=== PATIENT | female | born 1940 | race Caucasian/White ===

== ENCOUNTER 2019-08-11 10:25 | Emergency (ER) | payer MEDICARE ==
[~2019-08-11 10:25] MED LIST: AEC81 PO; DIVA-76 PO; LACT10SO PO; LEVO75TA10 PO; MULT-1250 PO; SERT50TA12 PO; TRAM50TA4 PO; TRAZ-185 PO
[2019-08-11 11:49] LABS: APPEARANCE,URINE Turbid (CLEAR); BILIRUBIN,URINE Negative (NEGATIVE); COLOR,URINE Dark Yellow (YELLOW); GLUCOSE, URINE (UA) >=1000 mg/dL (NEGATIVE); KETONES,URINE Negative (NEGATIVE); LEUKOCYTE ESTERASE ,URINE Large (NEGATIVE); NITRATE,URINE Negative (NEGATIVE); OCCULT BLOOD,URINE Large (NEGATIVE); PROTEIN,URINE POS 1+ mg/dL (NEGATIVE); UROBILINOGEN,URINE 0.2 mg/dL (0.2-1.0)
[2019-08-11 12:14] LABS: RBC,URINE 51-100 /HPF (0-1); WBC,URINE >100 /HPF (0-1)
[2019-08-11 12:15] LABS: BACTERIA,URINE Few /HPF (None Seen)
[2019-08-11] MEDS ORDERED: NITROFURANTOIN MONOHYD/M-CRYST 100 MG CAPSULE PO ONE (12:20)
--- NOTE | 2019-08-11 15:00 | NUR ---
CM NOTE cm spoke to patient's spouse regarding issues with home health. Spouse states home health was notified by their LOSS PREVENTION DETECTIVE on about perez not draining. States issue was reported again by LOSS PREVENTION DETECTIVE on Tuesday morning. Reports Nursing made visit on Tuesday evening and was recommended pt go to ER. CM asked offered short term snf/rehab as possible dc option vs changing home health agencies. Spouse declined SNF. States he wants to care for pt at home. CM explained that home health agencies cannot be switched until MD orders have been obtained from their PCP. CM offered to call claim administrator precision assembly inspector to [facility] to further discuss issue. Explained that agency can possibly have a different nurse assigned to pt or increase visits. Verbalized understanding. CM obtained BRIELLE to further discuss with [facility]. Spouse also gave CM phone number for [facility] [phone]. CM offered to contact PA with above information to further discuss options. No other questions or concerns verbalized. Nursing aware of above.
--- NOTE | 2019-08-11 15:31 | NUR ---
CM F/U NOTE CM spoke to church communications administrator Shahida Dallas regarding issue in delay with nursing visit. States she will be investigating time line and staff involved states she can assign a different nurse and will be contacting spouse to correct any issues. CM also attempted phone call to [facility] De Guzman to phone number provided. No answer, left message. CM then updated spouse with above. No other questions or concerns verbalized.
== END 2019-08-11 15:48 | disposition home or self-care (01) ==
LOC: EDH 10:25
DX: N39.0 Urinary tract infection, site not specified (principal); R33.9 Retention of urine, unspecified; I12.9 Hypertensive chronic kidney disease with stage 1 through stage 4 chronic kidney disease, or unspecified chronic kidney disease; E11.22 Type 2 diabetes mellitus with diabetic chronic kidney disease; N18.2 Chronic kidney disease, stage 2 (mild); I25.10 Atherosclerotic heart disease of native coronary artery without angina pectoris; K21.9 Gastro-esophageal reflux disease without esophagitis; M19.90 Unspecified osteoarthritis, unspecified site; F32.9 Major depressive disorder, single episode, unspecified; Z88.0 Allergy status to penicillin; Z88.2 Allergy status to sulfonamides; Z88.1 Allergy status to other antibiotic agents; Z88.8 Allergy status to other drugs, medicaments and biological substances
CPT/HCPCS: 51702; 81001; 87088

== ENCOUNTER 2019-08-25 20:21 | Inpatient (IN) | payer MEDICARE ==
[~2019-08-25] VITALS: Ht 165.1 cm; Wt 53.5 kg
[2019-08-25] MEDS ORDERED: MORPHINE SULFATE 2 MG/ML 1ML SYG ONE ×2 (20:52→21:41)
[2019-08-25 20:57] LABS: BASOPHILS % (AUTO) 0.7 % (0.0-5.0); EOSINOPHILS % (AUTO) 0.3 % (0.0-8.0); HEMATOCRIT 26.2 % (36-48); LYMPHOCYTES % (AUTO) 12.6 % (21.0-51.0); MEAN CORPUSCULAR HEMOGLOBIN 27.3 pg (27.0-33.0); MEAN CORPUSCULAR HGB CONC 33.2 g/dL (32.0-36.0); MEAN CORPUSCULAR VOLUME 82.1 fL (79-99); MONOCYTES % (AUTO) 6.6 % (3.0-13.0); NEUTROPHILS % (AUTO) 79.8 % (40.0-77.0); PLATELET COUNT (AUTO) 162 K/uL (130-400); RED BLOOD CELL COUNT(AUTO) 3.19 MIL/uL (4.00-5.50); RED CELL DISTRIBUTION WIDTH 14.9 % (11.0-15.5); WHITE BLOOD COUNT (AUTO) 11.1 K/uL (4.8-10.8)
[2019-08-25 21:12] LABS: ALBUMIN 2.8 g/dL (3.5-5.0); BILIRUBIN,DIRECT 0.2 mg/dL (0.0-0.3); BILIRUBIN,TOTAL 0.5 mg/dL (0.2-1.0); POTASSIUM 4.3 mmol/L (3.5-5.1); TOTAL PROTEIN, SERUM 6.7 g/dL (6.0-8.3)
[2019-08-25] MEDS ORDERED: CEFTRIAXONE SODIUM 1 GM ONE (21:35)
[2019-08-25] MEDS ORDERED: SODIUM CHLORIDE 0.9% 1000ML 2,000 ML IV ONE (21:35)
[2019-08-25] MEDS ORDERED: ONDANSETRON HCL 4 MG/2 ML VIAL ONE (21:42)
[2019-08-25 23:05] LABS: INR 0.98 (0.85-1.15); PARTIAL THROMBOPLASTIN TIME 28.8 SEC (26.3-35.5); PROTHROMBIN TIME 10.3 SEC (9.6-11.6)
[2019-08-25] MEDS ORDERED: ENOXAPARIN SODIUM 40 MG/0.4 ML SYRINGE SQ ONE (23:29)
[2019-08-25] MEDS ORDERED: VANCOMYCIN 1GM+NS 250ML 250 ML IV ONE (23:30)
[2019-08-25] MEDS ORDERED: FAMOTIDINE/PF 20 MG/2 ML VIAL IV ONE (23:30)
[2019-08-26 00:27] VITALS: BP 122/70
[2019-08-26] MEDS ORDERED: MORPHINE SULFATE 4 MG/1ML SYG ONE (01:05)
[2019-08-26] MEDS ORDERED: DEXTROSE 50%-WATER 50 ML DISP.SYRIN IV PRN (01:45)
[2019-08-26] MEDS ORDERED: HYDRALAZINE HCL 20 MG/ML VIAL IV PRN (01:45)
[2019-08-26] MEDS ORDERED: VANCOMYCIN PROTOCOL PER PHARMACY IV SCH (01:45)
[2019-08-26] MEDS ORDERED: ACETAMINOPHEN 325 MG TAB PO PRN (01:45)
[2019-08-26] MEDS ORDERED: ONDANSETRON HCL 4 MG/2 ML VIAL IVP PRN (01:45)
[2019-08-26] MEDS ORDERED: GLUCAGON 1MG KIT 1 MG ML IM PRN (01:45)
[2019-08-26 04:00] VITALS: BP 126/58
[2019-08-26 05:58] LABS: HEMATOCRIT 24.3 % (36-48); MEAN CORPUSCULAR HEMOGLOBIN 28.2 pg (27.0-33.0); MEAN CORPUSCULAR HGB CONC 34.2 g/dL (32.0-36.0); MEAN CORPUSCULAR VOLUME 82.3 fL (79-99); PLATELET COUNT (AUTO) 171 K/uL (130-400); RED BLOOD CELL COUNT(AUTO) 2.95 MIL/uL (4.00-5.50); RED CELL DISTRIBUTION WIDTH 14.9 % (11.0-15.5); WHITE BLOOD COUNT (AUTO) 9.4 K/uL (4.8-10.8)
[2019-08-26 06:05] LABS: CREATININE 0.7 mg/dL (0.5-1.5); POTASSIUM 3.9 mmol/L (3.5-5.1)
[2019-08-26] MEDS ORDERED: COMPOUND IV REFRIGERATED 1 EACH IVSOLN MISC PRN (06:30)
[2019-08-26] MEDS: INSULIN R PO SS1 SQ SCH ×4 (06:31→21:00)
[2019-08-26 08:00] VITALS: BP 111/57
[2019-08-26] MEDS: FAMOTIDINE/PF 20 MG/2 ML VIAL IV SCH (08:03)
[2019-08-26] MEDS: ENOXAPARIN SODIUM 40 MG/0.4 ML SYRINGE SQ SCH (08:04)
[2019-08-26] MEDS: VANCOMYCIN 750MG + NS 250 ML IV SCH ×4 (08:50→19:58)
[2019-08-26] MEDS ORDERED: SODIUM CHLORIDE 1,000 MG TAB PO SCH (11:45)
[2019-08-26 12:00] VITALS: BP 136/61
--- NOTE | 2019-08-26 12:00 | NUR ---
Dr Spaulding orthopedic surgeon continuous process machine operator was informed of consult
--- NOTE | 2019-08-26 12:15 | NUR ---
Dr Spaulding visited with pt, no family member present, he viewed the X ray and said that it is a complicated fracture and he doesn't do that type of surgeries. He said he will talked to Dr Plaza since he did surgery on the pt before. Alissa OAKEShome care consultant nurse informed Dr Spaulding that pt's do not want Dr Plaza in the case because he had suggested amputation for that leg in the past. He said he will still inform Dr Plaza.
[2019-08-26] MEDS: MORPHINE SULFATE 4 MG/1ML SYG IVP PRN ×2 (13:24→18:52)
[2019-08-26 16:00] VITALS: BP 114/57
[2019-08-26] MEDS: MORPHINE SULFATE 2 MG/ML 1ML SYG IVP PRN (17:11)
--- NOTE | 2019-08-26 18:14 | NUR ---
INITIAL: No family in the room. Pt w AMS. Call placed to pt's spouse Hector to discuss dcp. He mentions that prior to admission pt was living @ home w him. He mentions that pt is bedbound and dependent for care. She has a hx of knee removal to the lt and does not walk. He mentions that they have a marcelina lift, lift chair, wc and services from [facility]. he mentions that a bed/bath aide goes by 6days a week. Physical therapy also goes by and the PA makes home visits. Per Mr Demarco, he has all the assistance needed at home to continue to care for pt. DCP is for home/not considering SNf @ this time. Pt will need EMS transport home @ dc. to continue to follow and wait for Md recommendations. Addendum: 08/26/19 at 1818 by SKYLAR HUFFMAN Amended: Links added.
[2019-08-26] MEDS ORDERED: LACTULOSE 20 GM/30 ML UDCUP PO PRN (18:45)
[2019-08-26] MEDS: CEFTRIAXONE SODIUM 1 GM IVP SCH (19:57)
[2019-08-26] MEDS: SERTRALINE HCL 50 MG TABLET PO SCH (19:58)
[2019-08-26] MEDS: TRAZODONE HCL 50 MG TAB PO SCH (19:58)
[2019-08-26 20:00] VITALS: BP 115/57
[2019-08-27] VITALS (7 sets, daily range): BP systolic 102–147; BP diastolic 44–89
[2019-08-27] MEDS: MORPHINE SULFATE 2 MG/ML 1ML SYG IVP PRN ×2 (01:18→13:34)
[2019-08-27] MEDS: INSULIN R PO SS1 SQ SCH ×4 (06:02→21:00)
[2019-08-27 06:26] LABS: BASOPHILS % (AUTO) 0.4 % (0.0-5.0); EOSINOPHILS % (AUTO) 1.1 % (0.0-8.0); HEMATOCRIT 23.3 % (36-48); LYMPHOCYTES % (AUTO) 7.2 % (21.0-51.0); MEAN CORPUSCULAR HEMOGLOBIN 27.8 pg (27.0-33.0); MEAN CORPUSCULAR HGB CONC 33.4 g/dL (32.0-36.0); MEAN CORPUSCULAR VOLUME 83.3 fL (79-99); MONOCYTES % (AUTO) 6.2 % (3.0-13.0); NEUTROPHILS % (AUTO) 85.1 % (40.0-77.0); PLATELET COUNT (AUTO) 188 K/uL (130-400); RED CELL DISTRIBUTION WIDTH 15.3 % (11.0-15.5); WHITE BLOOD COUNT (AUTO) 8.7 K/uL (4.8-10.8)
[2019-08-27 06:27] LABS: CREATININE 0.8 mg/dL (0.5-1.5)
[2019-08-27] MEDS: FAMOTIDINE/PF 20 MG/2 ML VIAL IV SCH (08:45)
[2019-08-27] MEDS: VANCOMYCIN 750MG + NS 250 ML IV SCH ×4 (08:46→21:00)
[2019-08-27] MEDS: ENOXAPARIN SODIUM 40 MG/0.4 ML SYRINGE SQ SCH (08:51)
[2019-08-27] MEDS: SERTRALINE HCL 50 MG TABLET PO SCH ×2 (12:22→21:12)
[2019-08-27] MEDS: DIVALPROEX SODIUM 250 MG TABLET.DR PO SCH (12:22)
[2019-08-27] MEDS: ASPIRIN 81 MG EC TAB PO SCH (12:23)
[2019-08-27] MEDS: LEVOTHYROXINE 75 MCG TABLET PO SCH (12:24)
--- NOTE | 2019-08-27 12:46 | NUR ---
pt had a large fluid filled blister to right leg below knee; the blister ruptured at some point this am; i have placed a vaseline gauze then non adherant gauze over that w/ kerlix wrap, no tape on skin; pt tolerated poorly the dressing change screaming continously when her leg was touched; she immediatly calmed down when i was done; i had another nurse assist me to gently hold the leg while i applied the dressing.
[2019-08-27] MEDS ORDERED: KETOROLAC TROMETHAMINE 30MG/ML IV SCH (15:00)
--- NOTE | 2019-08-27 15:48 | NUR ---
[facility] CONSULT PATIENT ASSESSED REQUESTED: PATIENT PRESENTS WITH RUPTURED BLISTER TO RIGHT KNEE AND PERINEAL EXCORIATION; CONTINUE WITH WOUND CARE ORDERS ALREADY IN CHART; NO [facility] RECOMMENDATIONS REQUIRED AT THIS TIME. Addendum: 08/27/19 at 1553 by PIA DE LA PAZ LVN LVN W Amended: Links added.
[2019-08-27] MEDS ORDERED: PALI6TAB PO (18:46)
[2019-08-27] MEDS: MORPHINE SULFATE 4 MG/1ML SYG IVP PRN (18:58)
--- NOTE | 2019-08-27 19:09 | NUR ---
knee immobilizer applied to right leg after medicating the patient with morphine; pt kathia. well. 2 people used to apply, 1 to hold the leg and [address] knee immobilizer; pt's here and he is stating he has the house ready when the md decides she can go home.
--- NOTE | 2019-08-27 21:00 | NUR ---
PER OPINAS DO NOT GIVE VANCO DOSE [id number]
[2019-08-27] MEDS: NYSTATIN 15 GM POWDER TP SCH (21:12)
[2019-08-27] MEDS: CEFTRIAXONE SODIUM 1 GM IVP SCH (21:12)
[2019-08-27] MEDS: TRAZODONE HCL 50 MG TAB PO SCH (21:12)
[2019-08-27] MEDS ORDERED: HALOPERIDOL LACTATE 5 MG/ML VIAL ONE (23:04)
[2019-08-27] MEDS: HALOPERIDOL LACTATE 5 MG/ML VIAL IV SCH (23:47)
[2019-08-28] VITALS (7 sets, daily range): BP systolic 112–147; BP diastolic 50–89
[2019-08-28] MEDS: MORPHINE SULFATE 2 MG/ML 1ML SYG IVP PRN (00:31)
[2019-08-28 06:04] LABS: MEAN CORPUSCULAR HEMOGLOBIN 27.6 pg (27.0-33.0); MEAN CORPUSCULAR HGB CONC 33.4 g/dL (32.0-36.0); MEAN CORPUSCULAR VOLUME 82.7 fL (79-99); PLATELET COUNT (AUTO) 192 K/uL (130-400); RED BLOOD CELL COUNT(AUTO) 2.47 MIL/uL (4.00-5.50); RED CELL DISTRIBUTION WIDTH 15.7 % (11.0-15.5); WHITE BLOOD COUNT (AUTO) 6.7 K/uL (4.8-10.8)
[2019-08-28 06:08] LABS: HEMATOCRIT 20.5 % (36-48)
[2019-08-28 06:20] LABS: POTASSIUM 3.6 mmol/L (3.5-5.1)
--- NOTE | 2019-08-28 06:30 | NUR ---
BENCHMARK PAGED FOR HEMOGLOBIN & HEMATOCRIT
[2019-08-28] MEDS: INSULIN R PO SS1 SQ SCH ×4 (06:44→21:00)
[2019-08-28] MEDS: LEVOTHYROXINE 75 MCG TABLET PO SCH (06:44)
--- NOTE | 2019-08-28 07:55 | NUR ---
Telephone Consent Mr. Hector Pal called via telephone this morning for consent to give blood to her Ana Pal. Pt only alert to self and unable to give consent for blood transfusion. Consent acknowledged and by a second RN.
[2019-08-28] MEDS: SERTRALINE HCL 50 MG TABLET PO SCH ×2 (10:03→21:11)
[2019-08-28] MEDS: ASPIRIN 81 MG EC TAB PO SCH (10:03)
[2019-08-28] MEDS: FAMOTIDINE/PF 20 MG/2 ML VIAL IV SCH (10:03)
[2019-08-28] MEDS: DIVALPROEX SODIUM 250 MG TABLET.DR PO SCH (10:03)
[2019-08-28] MEDS: NYSTATIN 15 GM POWDER TP SCH ×2 (10:04→21:23)
[2019-08-28] MEDS: ENOXAPARIN SODIUM 40 MG/0.4 ML SYRINGE SQ SCH (10:04)
--- NOTE | 2019-08-28 12:17 | NUR ---
PT UPDATE Pt condition stable at this time, pending type and cross results to transfuse 1 unit of PRBC, care endorsed to RN.
--- NOTE | 2019-08-28 15:24 | NUR ---
RD NOTIFICATION Pt admitted for RLE Swelling/cellulitis. Upon visit, Pt difficult to talk, appearance of enlarged tongue that may cause swallowing difficulty; Recommend ELEVATOR REPAIRER HELPER Consult. Pt had only eaten 25% or less of meal tray. Difficult to understand responses to questions, besides yes/no questions. Pt dislikes Glucerna. Recommend 60mL ProMod QD, as tolerated. Pt LBM 08/24/19. Pt Labs: H&H 6.8/09/04, Na 134, Cl 98, GFR 57, Glu 194, Alb 2.8. RD to continue to monitor. Please notify RD as additional nutrition concerns arise. Thank you. Addendum: 08/28/19 at [address] Amended: Links added.
--- NOTE | 2019-08-28 18:25 | NUR ---
ATTEMPTED TO CALL SUZANNE LONGORIA ON HER PHONE TO NOTIFY HER THAT THE BLOOD TRANSFUSION WILL BE DELAY BECAUSE THE BLOOD WILL BE COMING FROM [place]. NO ANSWER WILL CALL BACK AGAIN
[2019-08-28] MEDS: MORPHINE SULFATE 4 MG/1ML SYG IVP PRN (18:52)
[2019-08-28] MEDS: CEFTRIAXONE SODIUM 1 GM IVP SCH (21:11)
[2019-08-28] MEDS: TRAZODONE HCL 50 MG TAB PO SCH (21:11)
[2019-08-28] MEDS: VANCOMYCIN 750MG + NS 250 ML IV SCH ×2 (21:12)
[2019-08-28] MEDS: HALOPERIDOL LACTATE 5 MG/ML VIAL IV SCH (21:24)
--- NOTE | 2019-08-29 00:40 | NUR ---
PT STARTED ON BLOOD TRANSFUSION ORDERED PT 'S VITAL SIGNS STABLE NO SIGNS OF ADVERSE REACTIONS NOTED WILL CONTINUE TO MONITOR
[2019-08-29 03:33] VITALS: BP 138/74
[2019-08-29 05:34] LABS: HEMATOCRIT 26.3 % (36-48); MEAN CORPUSCULAR HEMOGLOBIN 28.3 pg (27.0-33.0); MEAN CORPUSCULAR HGB CONC 34.1 g/dL (32.0-36.0); PLATELET COUNT (AUTO) 196 K/uL (130-400); RED BLOOD CELL COUNT(AUTO) 3.17 MIL/uL (4.00-5.50); RED CELL DISTRIBUTION WIDTH 15.5 % (11.0-15.5); WHITE BLOOD COUNT (AUTO) 7.2 K/uL (4.8-10.8)
[2019-08-29 05:44] LABS: CREATININE 0.8 mg/dL (0.5-1.5); POTASSIUM 3.7 mmol/L (3.5-5.1)
--- NOTE | 2019-08-29 06:10 | NUR ---
SHAPER SETTER - BUCK AWARE THAT PER LAB A PAPER HAS TO BE SINGED STATED , THAT HE WAS AWARE OF PT'S ANTIBODIES FOR BLOOD CROSS TYPE EVEN THO HE IS AWARE , HE STATED TO HAVE THE MORNING SHAPER SETTER CAN SIGN THE PAPER HE DID NOT WANT ME TO SIGN TELEPHONE
[2019-08-29] MEDS: LEVOTHYROXINE 75 MCG TABLET PO SCH (06:58)
[2019-08-29] MEDS: INSULIN R PO SS1 SQ SCH ×3 (07:08→18:00)
[2019-08-29 08:00] VITALS: BP 157/106
[2019-08-29] MEDS: ENOXAPARIN SODIUM 40 MG/0.4 ML SYRINGE SQ SCH (08:59)
[2019-08-29] MEDS: DIVALPROEX SODIUM 250 MG TABLET.DR PO SCH (09:00)
[2019-08-29] MEDS: SERTRALINE HCL 50 MG TABLET PO SCH (09:00)
[2019-08-29] MEDS: ASPIRIN 81 MG EC TAB PO SCH (09:00)
[2019-08-29] MEDS: FAMOTIDINE/PF 20 MG/2 ML VIAL IV SCH (09:00)
[2019-08-29] MEDS: VANCOMYCIN 750MG + NS 250 ML IV SCH ×2 (09:15)
[2019-08-29] MEDS: NYSTATIN 15 GM POWDER TP SCH (09:16)
[2019-08-29 11:38] VITALS: BP 141/73
[2019-08-29 16:00] VITALS: BP 156/84
--- NOTE | 2019-08-29 17:30 | NUR ---
i have called and spoken to Hector Pal, of pt Ana on the phone and given him discharge instructions; including care of tibia fx, knee immobilizer, wound care for blister, follow up appointments necessary, new scripts for oral abx; pt's stated understanding of all d/c instructions; pt is being transfered via ems; i will remove iv access and tele box now in preperation for ems olive picker
== END 2019-08-29 18:45 | disposition home health service (06) | DRG 871 ==
LOC: EDH 20:21 → EDHIP 22:29 → OBSVTOIN 22:29 → 3BH 23:39
PROVIDERS: ADMIT Internal Medicine Critical Care Medicine; ATTEND Internal Medicine Critical Care Medicine
PROC: 2W3QX3Z Immobilization of Right Lower Leg using Brace (ICD-10-PCS; principal; 2019-08-28)
PROC: 30233N1 Transfusion of Nonautologous Red Blood Cells into Peripheral Vein, Percutaneous Approach (ICD-10-PCS; 2019-08-29)
DX: A41.9 Sepsis, unspecified organism (principal); G93.41 Metabolic encephalopathy; L03.115 Cellulitis of right lower limb; E87.1 Hypo-osmolality and hyponatremia; Z68.1 Body mass index [BMI] 19.9 or less, adult; M97.11XA Periprosthetic fracture around internal prosthetic right knee joint, initial encounter; E44.1 Mild protein-calorie malnutrition; S82.831A Other fracture of upper and lower end of right fibula, initial encounter for closed fracture; Z96.653 Presence of artificial knee joint, bilateral; F32.9 Major depressive disorder, single episode, unspecified; I10 Essential (primary) hypertension; D64.9 Anemia, unspecified; E03.9 Hypothyroidism, unspecified; F20.9 Schizophrenia, unspecified; G89.29 Other chronic pain; E66.01 Morbid (severe) obesity due to excess calories; E11.9 Type 2 diabetes mellitus without complications; R29.6 Repeated falls; F03.90 Unspecified dementia, unspecified severity, without behavioral disturbance, psychotic disturbance, mood disturbance, and anxiety; M19.90 Unspecified osteoarthritis, unspecified site; Z86.14 Personal history of Methicillin resistant Staphylococcus aureus infection; Z74.01 Bed confinement status; Z87.440 Personal history of urinary (tract) infections; Y92.89 Other specified places as the place of occurrence of the external cause; Z91.81 History of falling; Z83.3 Family history of diabetes mellitus; Z90.49 Acquired absence of other specified parts of digestive tract; Z88.1 Allergy status to other antibiotic agents; Z88.0 Allergy status to penicillin; Z88.2 Allergy status to sulfonamides
CPT/HCPCS: 36415; 36430; 71045; 73590; 73700; 80048; 80076; 80202; 82550; 82948; 83605; 84145; 85025; 85027; 85610; 85730; 86850; 86870; 86900; 86901; 86922; 87040; 93005; 93971; G0378; J0696; J1630; J1650; J1815; J1885; J2270; J2405; J3370; J3490; J7030; P9016

== ENCOUNTER 2021-05-17 16:13 | Inpatient (IN) | payer MEDICARE ==
[~2021-05-17] VITALS: Ht 162.6 cm; Wt 85.3 kg
[~2021-05-17 16:13] MED LIST changes: -LACT10SO PO; +LACT10SO5 PO; -MULT-1250 PO; +PALI6TAB PO; +SERT-439 PO; -SERT50TA12 PO; -TRAM50TA4 PO
[2021-05-17 16:33] VITALS: BP 160/72
[2021-05-17] MEDS ORDERED: 0.9%NACL 1000ML 1,000 ML IV ONE (16:45)
[2021-05-17 17:21] LABS: BASOPHILS % (AUTO) 0.2 % (0.0-5.0); EOSINOPHILS % (AUTO) 3.2 % (0.0-8.0); LYMPHOCYTES % (AUTO) 23.1 % (21.0-51.0); MEAN CORPUSCULAR HEMOGLOBIN 25.3 pg (27.0-33.0); MEAN CORPUSCULAR HGB CONC 30.8 g/dL (32.0-36.0); MEAN CORPUSCULAR VOLUME 82.3 fL (79-99); MONOCYTES % (AUTO) 5.9 % (3.0-13.0); NEUTROPHILS % (AUTO) 67.4 % (40.0-77.0); PLATELET COUNT (AUTO) 179 K/uL (130-400); RED BLOOD CELL COUNT(AUTO) 4.62 MIL/uL (4.00-5.50); RED CELL DISTRIBUTION WIDTH 14.2 % (11.0-15.5); WHITE BLOOD COUNT (AUTO) 4.9 K/uL (4.8-10.8)
[2021-05-17 17:27] VITALS: BP 148/81
[2021-05-17 17:27] LABS: APPEARANCE,URINE Turbid (CLEAR); BILIRUBIN,URINE Negative (NEGATIVE); COLOR,URINE Yellow (YELLOW); GLUCOSE, URINE (UA) 500 mg/dL (NEGATIVE); KETONES,URINE Negative (NEGATIVE); LEUKOCYTE ESTERASE ,URINE Large (NEGATIVE); NITRATE,URINE Negative (NEGATIVE); OCCULT BLOOD,URINE Moderate (NEGATIVE); PROTEIN,URINE POS 2+ mg/dL (NEGATIVE); UROBILINOGEN,URINE 0.2 mg/dL (0.2-1.0)
[2021-05-17 17:38] LABS: BILIRUBIN,TOTAL 0.3 mg/dL (0.2-1.0); POTASSIUM 4.2 mmol/L (3.5-5.1); TOTAL PROTEIN, SERUM 7.8 g/dL (6.0-8.3)
[2021-05-17 17:48] LABS: BACTERIA,URINE Many /HPF (None Seen); MUCUS,URINE Few LPF (None Seen); SQUAMOUS EPITHELIAL CELL,UR 0-2 /HPF (0-2); YEAST,URINE BUDDING Moderate /HPF (None Seen)
[2021-05-17] MEDS ORDERED: IOHEXOL-350 75 ML VIAL IV ONE (17:51)
[2021-05-17 17:59] LABS: TRIPLE PHOSPHATE CRYSTAL,UR Few /LPF (None Seen)
[2021-05-17 18:49] VITALS: BP 162/72
[2021-05-17 20:02] VITALS: BP 153/85
[2021-05-17] MEDS ORDERED: NON-FORMULARY MEDICATION 1 EACH (Lactulose 10 GM) PO PRN (20:30)
[2021-05-17] MEDS ORDERED: INSULIN HUMULIN R 100 UNIT/ML 3ML IV ONE (20:30)
[2021-05-17] MEDS ORDERED: MAG/ALUM/SIMETH 30 ML UDCUP PO PRN (20:45)
[2021-05-17] MEDS ORDERED: APAP-CODEINE 300/30MG TAB PO PRN (20:45)
[2021-05-17] MEDS ORDERED: GUAIFENESIN-DM 200/20 MG 10 ML PO PRN (20:45)
[2021-05-17] MEDS ORDERED: LACTULOSE 20 GM/30 ML UDCUP PO PRN (20:45)
[2021-05-17] MEDS ORDERED: ONDANSETRON 4MG INJ IV PRN (20:45)
[2021-05-17] MEDS ORDERED: ACETAMINOPHEN 325 MG TAB PO PRN ×2 (20:45)
[2021-05-17] MEDS ORDERED: HYDRALAZINE 20MG/ML VIAL IV PRN (20:45)
[2021-05-17] MEDS ORDERED: NITROGLYCERIN 0.4 MG SL TAB SL PRN (20:45)
[2021-05-17] MEDS: METRONIDAZOLE 500MG/100ML BAG 100 ML IV SCH (20:59)
[2021-05-17] MEDS: CEFTRIAXONE 1G VIAL IVP SCH ×2 (20:59→21:19)
[2021-05-17] MEDS: 0.9%NACL 1000ML 1,000 ML IV SCH (20:59)
[2021-05-17] MEDS: TRAZODONE HCL 50 MG TAB PO SCH (21:00)
[2021-05-17] MEDS: INSULIN HUMULIN R 100 UNIT/ML 3ML SQ SCH (21:00)
[2021-05-17] MEDS: SERTRALINE HCL 50 MG TABLET PO SCH (21:19)
[2021-05-17] MEDS ORDERED: DiphenhydrAMINE HCL 50 MG/ML VIAL ONE (23:38)
[2021-05-18] VITALS (9 sets, daily range): BP systolic 121–163; BP diastolic 56–105
[2021-05-18] MEDS: METRONIDAZOLE 500MG/100ML BAG 100 ML IV SCH ×3 (05:44→21:27)
[2021-05-18 05:56] LABS: BASOPHILS % (AUTO) 0.4 % (0.0-5.0); HEMATOCRIT 34.7 % (36-48); LYMPHOCYTES % (AUTO) 32.4 % (21.0-51.0); MEAN CORPUSCULAR HEMOGLOBIN 25.4 pg (27.0-33.0); MEAN CORPUSCULAR HGB CONC 31.1 g/dL (32.0-36.0); MEAN CORPUSCULAR VOLUME 81.6 fL (79-99); NEUTROPHILS % (AUTO) 55.8 % (40.0-77.0); PLATELET COUNT (AUTO) 169 K/uL (130-400); RED BLOOD CELL COUNT(AUTO) 4.25 MIL/uL (4.00-5.50); RED CELL DISTRIBUTION WIDTH 14.3 % (11.0-15.5); WHITE BLOOD COUNT (AUTO) 5.6 K/uL (4.8-10.8)
[2021-05-18 06:07] LABS: CREATININE 0.8 mg/dL (0.5-1.5); POTASSIUM 4.3 mmol/L (3.5-5.1)
[2021-05-18] MEDS: INSULIN HUMULIN R 100 UNIT/ML 3ML SQ SCH ×4 (07:30→21:00)
[2021-05-18] MEDS: SERTRALINE HCL 50 MG TABLET PO SCH ×2 (08:45→21:00)
[2021-05-18] MEDS: DIVALPROEX SODIUM 250 MG TABLET.DR PO SCH (08:45)
[2021-05-18] MEDS: ASPIRIN 81 MG EC TAB PO SCH (08:45)
[2021-05-18] MEDS: LEVOTHYROXINE 75 MCG TABLET PO SCH (08:45)
[2021-05-18] MEDS: ENOXAPARIN SODIUM 30 MG/0.3 ML SQ SCH (08:47)
[2021-05-18] MEDS: PALIPERIDONE 6 MG PO SCH (09:00)
[2021-05-18] MEDS ORDERED: CLONIDINE HCL 0.1 MG TABLET PO PRN (09:30)
[2021-05-18] MEDS: 0.9%NACL 1000ML 1,000 ML IV SCH (16:45)
[2021-05-18] MEDS ORDERED: TRAMADOL HCL 50 MG TABLET ONE (17:40)
[2021-05-18] MEDS ORDERED: TRAMADOL HCL 50 MG TABLET PO PRN (18:00)
[2021-05-18] MEDS ORDERED: HYDROMORPHONE 1 MG INJ ONE (18:08)
[2021-05-18] MEDS: TRAZODONE HCL 50 MG TAB PO SCH (21:00)
[2021-05-18] MEDS ORDERED: LORAZEPAM 2 MG/ML 1 ML VIAL ONE (22:07)
[2021-05-18] MEDS ORDERED: HALOPERIDOL LACTATE 5 MG/ML VIAL ONE (22:12)
[2021-05-18] MEDS ORDERED: MAGNESIUM CITRATE 296 ML SOLUTION PO ONE (22:30)
[2021-05-18] MEDS ORDERED: MAGNESIUM CITRATE 296 ML SOLUTION ONE (23:52)
[2021-05-19 06:35] LABS: CREATININE 0.8 mg/dL (0.5-1.5); POTASSIUM 3.7 mmol/L (3.5-5.1); THYROID STIMULATING HORMONE 3.63 uIU/mL (0.36-3.74)
[2021-05-19 06:43] LABS: HEMATOCRIT 36.7 % (36-48); MEAN CORPUSCULAR HEMOGLOBIN 26.2 pg (27.0-33.0); MEAN CORPUSCULAR HGB CONC 31.6 g/dL (32.0-36.0); RED BLOOD CELL COUNT(AUTO) 4.42 MIL/uL (4.00-5.50); RED CELL DISTRIBUTION WIDTH 14.5 % (11.0-15.5); WHITE BLOOD COUNT (AUTO) 5.9 K/uL (4.8-10.8)
[2021-05-19 07:30] VITALS: BP 195/90
[2021-05-19] MEDS: INSULIN HUMULIN R 100 UNIT/ML 3ML SQ SCH ×4 (07:30→20:38)
[2021-05-19] MEDS: PALIPERIDONE 6 MG PO SCH (09:00)
[2021-05-19] MEDS: SERTRALINE HCL 50 MG TABLET PO SCH ×2 (10:26→20:36)
[2021-05-19] MEDS: DIVALPROEX SODIUM 250 MG TABLET.DR PO SCH (10:26)
[2021-05-19] MEDS: LEVOTHYROXINE 75 MCG TABLET PO SCH (10:26)
[2021-05-19] MEDS: ASPIRIN 81 MG EC TAB PO SCH (10:26)
[2021-05-19] MEDS: ENOXAPARIN SODIUM 30 MG/0.3 ML SQ SCH (10:27)
[2021-05-19] MEDS: HYDRALAZINE 20MG/ML VIAL IV PRN ×2 (10:58→20:37)
[2021-05-19 11:00] VITALS: BP 203/80
[2021-05-19] MEDS: 0.9%NACL 1000ML 1,000 ML IV SCH (11:29)
[2021-05-19] MEDS: METRONIDAZOLE 500MG/100ML BAG 100 ML IV SCH ×2 (11:46→20:36)
[2021-05-19 16:00] VITALS: BP 193/88
[2021-05-19 19:45] VITALS: BP 167/94
[2021-05-19] MEDS: CEFTRIAXONE 1G VIAL IVP SCH (20:36)
[2021-05-19] MEDS: TRAZODONE HCL 50 MG TAB PO SCH (20:36)
[2021-05-19] MEDS: AZTREONAM 1 GM VIAL IVP SCH (22:00)
[2021-05-19 23:59] VITALS: BP 160/73
[2021-05-20] VITALS (7 sets, daily range): BP systolic 143–208; BP diastolic 56–94
[2021-05-20] MEDS: METRONIDAZOLE 500MG/100ML BAG 100 ML IV SCH ×3 (04:25→19:49)
[2021-05-20 05:46] LABS: MEAN CORPUSCULAR HGB CONC 31.3 g/dL (32.0-36.0); RED BLOOD CELL COUNT(AUTO) 4.58 MIL/uL (4.00-5.50); RED CELL DISTRIBUTION WIDTH 14.8 % (11.0-15.5); WHITE BLOOD COUNT (AUTO) 5.9 K/uL (4.8-10.8)
[2021-05-20] MEDS: INSULIN HUMULIN R 100 UNIT/ML 3ML SQ SCH ×4 (05:49→19:50)
[2021-05-20] MEDS: AZTREONAM 1 GM VIAL IVP SCH ×3 (05:49→19:49)
[2021-05-20] MEDS: LEVOTHYROXINE 75 MCG TABLET PO SCH (05:49)
[2021-05-20 06:09] LABS: CREATININE 0.8 mg/dL (0.5-1.5); POTASSIUM 3.4 mmol/L (3.5-5.1)
[2021-05-20] MEDS: PALIPERIDONE 6 MG PO SCH (09:00)
[2021-05-20] MEDS: SERTRALINE HCL 50 MG TABLET PO SCH ×2 (09:12→19:49)
[2021-05-20] MEDS: ASPIRIN 81 MG EC TAB PO SCH (09:13)
[2021-05-20] MEDS: DIVALPROEX SODIUM 250 MG TABLET.DR PO SCH (09:13)
[2021-05-20] MEDS: 0.9%NACL 1000ML 1,000 ML IV SCH (09:15)
[2021-05-20] MEDS: ENOXAPARIN SODIUM 30 MG/0.3 ML SQ SCH (09:15)
[2021-05-20] MEDS: TRAZODONE HCL 50 MG TAB PO SCH (19:49)
[2021-05-20] MEDS: HYDRALAZINE 20MG/ML VIAL IV PRN (20:38)
[2021-05-21 03:42] VITALS: BP 149/74
[2021-05-21] MEDS: METRONIDAZOLE 500MG/100ML BAG 100 ML IV SCH ×2 (04:30→13:09)
[2021-05-21] MEDS: 0.9%NACL 1000ML 1,000 ML IV SCH (04:30)
[2021-05-21] MEDS: AZTREONAM 1 GM VIAL IVP SCH ×2 (04:30→13:09)
[2021-05-21] MEDS: LEVOTHYROXINE 75 MCG TABLET PO SCH (06:11)
[2021-05-21] MEDS: INSULIN HUMULIN R 100 UNIT/ML 3ML SQ SCH ×2 (06:12→11:30)
[2021-05-21 07:30] VITALS: BP 183/89
[2021-05-21] MEDS: PALIPERIDONE 6 MG PO SCH (09:00)
[2021-05-21] MEDS: DIVALPROEX SODIUM 250 MG TABLET.DR PO SCH (09:19)
[2021-05-21] MEDS: HYDRALAZINE 20MG/ML VIAL IV PRN (09:19)
[2021-05-21] MEDS: ASPIRIN 81 MG EC TAB PO SCH (09:19)
[2021-05-21] MEDS: SERTRALINE HCL 50 MG TABLET PO SCH (09:19)
[2021-05-21] MEDS: ENOXAPARIN SODIUM 30 MG/0.3 ML SQ SCH (09:20)
[2021-05-21 11:00] VITALS: BP 138/74
[2021-05-21] MEDS ORDERED: LEVO500T89 PO (18:16)
== END 2021-05-21 19:39 | disposition hospice, home (50) | DRG 690 ==
LOC: EDH 16:13 → EDHIP 20:31 → OBSVTOIN 20:31 → 3CH 05-18 23:20
PROVIDERS: ADMIT Internal Medicine; ATTEND Internal Medicine
DX: N39.0 Urinary tract infection, site not specified (principal); J90 Pleural effusion, not elsewhere classified; K52.9 Noninfective gastroenteritis and colitis, unspecified; K59.00 Constipation, unspecified; E11.65 Type 2 diabetes mellitus with hyperglycemia; E86.0 Dehydration; E66.9 Obesity, unspecified; Z68.32 Body mass index [BMI] 32.0-32.9, adult; F03.90 Unspecified dementia, unspecified severity, without behavioral disturbance, psychotic disturbance, mood disturbance, and anxiety; F20.9 Schizophrenia, unspecified; G89.29 Other chronic pain; I10 Essential (primary) hypertension; I48.91 Unspecified atrial fibrillation; J44.9 Chronic obstructive pulmonary disease, unspecified; Z79.82 Long term (current) use of aspirin; Z80.1 Family history of malignant neoplasm of trachea, bronchus and lung; Z82.0 Family history of epilepsy and other diseases of the nervous system; Z82.3 Family history of stroke; Z82.49 Family history of ischemic heart disease and other diseases of the circulatory system; Z82.5 Family history of asthma and other chronic lower respiratory diseases; Z83.3 Family history of diabetes mellitus; Z79.899 Other long term (current) drug therapy; Z88.1 Allergy status to other antibiotic agents; Z88.0 Allergy status to penicillin; Z88.2 Allergy status to sulfonamides; Z88.8 Allergy status to other drugs, medicaments and biological substances
CPT/HCPCS: 36415; 74018; 74177; 80048; 80053; 81001; 82150; 82948; 83690; 84443; 84484; 85025; 85027; 87040; 87077; 87088; 87186; 93005; G0378; J0360; J0696; J1170; J1200; J1630; J1650; J1815; J2060; J3490; Q9967

== ENCOUNTER 2021-08-25 13:36 | Inpatient (IN) | payer MEDICARE ==
[~2021-08-25] VITALS: Ht 167.6 cm; Wt 74.1 kg
[~2021-08-25 13:36] MED LIST changes: +LEVO500T90 PO
[2021-08-25 14:40] LABS: BASOPHILS % (AUTO) 0.2 % (0.0-5.0); EOSINOPHILS % (AUTO) 3.3 % (0.0-8.0); LYMPHOCYTES % (AUTO) 13.5 % (21.0-51.0); MEAN CORPUSCULAR HEMOGLOBIN 25.5 pg (27.0-33.0); MEAN CORPUSCULAR HGB CONC 31.7 g/dL (32.0-36.0); MEAN CORPUSCULAR VOLUME 80.5 fL (79-99); MONOCYTES % (AUTO) 6.3 % (3.0-13.0); NEUTROPHILS % (AUTO) 76.3 % (40.0-77.0); PLATELET COUNT (AUTO) 191 K/uL (130-400); RED BLOOD CELL COUNT(AUTO) 4.47 MIL/uL (4.00-5.50); RED CELL DISTRIBUTION WIDTH 15.1 % (11.0-15.5); WHITE BLOOD COUNT (AUTO) 8.4 K/uL (4.8-10.8)
[2021-08-25 14:49] LABS: CREATININE 1.1 mg/dL (0.5-1.5)
[2021-08-25 14:54] LABS: ALBUMIN 2.9 g/dL (3.5-5.0); BILIRUBIN,TOTAL 0.3 mg/dL (0.2-1.0); TOTAL PROTEIN, SERUM 7.6 g/dL (6.0-8.3)
[2021-08-25 15:11] LABS: B-TYPE NATRIURETIC PEPTIDE 121 pg/mL (0-100)
[2021-08-25] MEDS ORDERED: DIAZ5TAB4 PO (16:49)
[2021-08-25] MEDS ORDERED: TRAM50TA4 PO (16:49)
[2021-08-25] MEDS ORDERED: LEVO88TA7 PO (16:49)
[2021-08-25] MEDS ORDERED: MORPHINE 4 MG SYG ONE (16:52)
[2021-08-25] MEDS ORDERED: ONDANSETRON 4MG INJ ONE (16:52)
[2021-08-25] MEDS ORDERED: LACTULOSE 20 GM/30 ML UDCUP PO PRN (19:30)
[2021-08-25] MEDS ORDERED: ONDANSETRON 4MG INJ IVP PRN (19:30)
[2021-08-25] MEDS ORDERED: CLONIDINE HCL 0.1 MG TABLET PO PRN (20:00)
[2021-08-25] MEDS ORDERED: ACETAMINOPHEN 325 MG TAB PO PRN (20:00)
[2021-08-25] MEDS: TRAZODONE HCL 50 MG TAB PO SCH (21:00)
[2021-08-25] MEDS: LACTATED RINGERS 1000ML 1,000 ML IV SCH (21:55)
[2021-08-25] MEDS: CEFTRIAXONE 1G VIAL IVP SCH (21:55)
[2021-08-25] MEDS: SERTRALINE HCL 50 MG TABLET PO SCH (22:44)
[2021-08-25 23:25] VITALS: BP 103/49
[2021-08-26 04:20] VITALS: BP 149/89
[2021-08-26] MEDS: MORPHINE 2 MG SYG IV PRN ×3 (04:22→19:58)
[2021-08-26 05:32] LABS: HEMATOCRIT 34.1 % (36-48); MEAN CORPUSCULAR HEMOGLOBIN 25.3 pg (27.0-33.0); MEAN CORPUSCULAR HGB CONC 31.1 g/dL (32.0-36.0); MEAN CORPUSCULAR VOLUME 81.4 fL (79-99); RED BLOOD CELL COUNT(AUTO) 4.19 MIL/uL (4.00-5.50); RED CELL DISTRIBUTION WIDTH 15.2 % (11.0-15.5); WHITE BLOOD COUNT (AUTO) 7.7 K/uL (4.8-10.8)
[2021-08-26 05:39] LABS: CREATININE 1.1 mg/dL (0.5-1.5); POTASSIUM 5.2 mmol/L (3.5-5.1)
[2021-08-26 07:15] VITALS: BP 110/43
[2021-08-26] MEDS: LEVOTHYROXINE 88 MCG TABLET PO SCH (07:22)
[2021-08-26] MEDS: LACTATED RINGERS 1000ML 1,000 ML IV SCH ×2 (08:20→18:24)
[2021-08-26] MEDS: SERTRALINE HCL 50 MG TABLET PO SCH ×2 (09:00→19:54)
[2021-08-26] MEDS: ENOXAPARIN SODIUM 40 MG/0.4 ML SYRINGE SQ SCH (09:00)
[2021-08-26] MEDS: PANTOPRAZOLE 40 MG/VIAL IVP SCH (10:08)
[2021-08-26 11:15] VITALS: BP 94/48
[2021-08-26 15:15] VITALS: BP 96/42
[2021-08-26] MEDS ORDERED: 0.9% NACL 250ML IVPB SCH (15:30)
[2021-08-26] MEDS ORDERED: AZITHROMYCIN 500MG VIAL IVPB SCH (15:30)
[2021-08-26 15:41] LABS: APPEARANCE,URINE CLOUDY (CLEAR); BILIRUBIN,URINE NEGATIVE (NEGATIVE); COLOR,URINE YELLOW (YELLOW); GLUCOSE, URINE (UA) NEGATIVE (NEGATIVE); KETONES,URINE NEGATIVE (NEGATIVE); LEUKOCYTE ESTERASE ,URINE MODERATE (NEGATIVE); NITRATE,URINE NEGATIVE (NEGATIVE); OCCULT BLOOD,URINE LARGE (NEGATIVE); PH,URINE 5.5 (5.0-8.0); PROTEIN,URINE 100 mg/dL (NEGATIVE); UROBILINOGEN,URINE 0.2 mg/dL (0.2-1.0)
[2021-08-26 16:08] LABS: BACTERIA,URINE Few /HPF (None Seen); MUCUS,URINE Few LPF (None Seen); SQUAMOUS EPITHELIAL CELL,UR Few /HPF (0-2); WBC,URINE 51-100 /HPF (0-1)
[2021-08-26] MEDS ORDERED: MIDODRINE HCL 5 MG TABLET ONE (17:05)
[2021-08-26] MEDS: MIDODRINE HCL 5 MG TABLET PO SCH (17:24)
[2021-08-26] MEDS ORDERED: AZITHROMYCIN 500MG+NS 250ML IV SCH (17:30)
[2021-08-26] MEDS ORDERED: 0.9% NACL 250ML 250 ML IV SCH (17:30)
[2021-08-26] MEDS: IPRATROPIUM/ALBUTEROL SULFATE 3 ML SOLUTION IH SCH (18:36)
[2021-08-26] MEDS: TRAZODONE HCL 50 MG TAB PO SCH (19:54)
[2021-08-26] MEDS: CEFTRIAXONE 1G VIAL IVP SCH (19:54)
[2021-08-26 20:00] VITALS: BP 137/105
[2021-08-26] MEDS: INSULIN GLARGINE 100 UNITS/ML 10 ML VIAL SQ SCH (21:00)
[2021-08-27] VITALS (7 sets, daily range): BP systolic 100–145; BP diastolic 44–76
[2021-08-27] MEDS: IPRATROPIUM/ALBUTEROL SULFATE 3 ML SOLUTION IH SCH ×5 (00:04→23:21)
[2021-08-27] MEDS: LEVOTHYROXINE 88 MCG TABLET PO SCH (06:13)
[2021-08-27] MEDS: INSULIN GLARGINE 100 UNITS/ML 10 ML VIAL SQ SCH ×2 (06:21→21:08)
[2021-08-27] MEDS: SERTRALINE HCL 50 MG TABLET PO SCH ×2 (09:43→21:08)
[2021-08-27] MEDS: MIDODRINE HCL 5 MG TABLET PO SCH ×3 (09:43→21:07)
[2021-08-27] MEDS: PANTOPRAZOLE 40 MG/VIAL IVP SCH (09:51)
[2021-08-27] MEDS: ENOXAPARIN SODIUM 40 MG/0.4 ML SYRINGE SQ SCH (09:52)
[2021-08-27] MEDS: LEVOFLOXACIN 500 MG/D5W 100 ML 100 ML IV SCH (12:33)
[2021-08-27] MEDS: MORPHINE 2 MG SYG IV PRN (14:31)
[2021-08-27] MEDS: LACTATED RINGERS 1000ML 1,000 ML IV SCH (19:06)
[2021-08-27] MEDS: CEFTRIAXONE 1G VIAL IVP SCH (21:07)
[2021-08-27] MEDS: TRAZODONE HCL 50 MG TAB PO SCH (21:07)
[2021-08-28] MEDS: LACTATED RINGERS 1000ML 1,000 ML IV SCH ×3 (00:20→13:40)
[2021-08-28 03:06] VITALS: BP 140/68
[2021-08-28] MEDS: MORPHINE 2 MG SYG IV PRN (03:41)
[2021-08-28] MEDS: LEVOTHYROXINE 88 MCG TABLET PO SCH (06:02)
[2021-08-28] MEDS: INSULIN GLARGINE 100 UNITS/ML 10 ML VIAL SQ SCH ×2 (06:14→20:24)
[2021-08-28] MEDS: IPRATROPIUM/ALBUTEROL SULFATE 3 ML SOLUTION IH SCH ×3 (06:28→18:29)
[2021-08-28 07:05] VITALS: BP 145/97
[2021-08-28] MEDS: MIDODRINE HCL 5 MG TABLET PO SCH ×3 (09:00→20:31)
[2021-08-28] MEDS: PANTOPRAZOLE 40 MG/VIAL IVP SCH (10:26)
[2021-08-28] MEDS: ENOXAPARIN SODIUM 40 MG/0.4 ML SYRINGE SQ SCH (10:26)
[2021-08-28] MEDS: SERTRALINE HCL 50 MG TABLET PO SCH ×2 (10:26→20:31)
[2021-08-28 11:05] VITALS: BP 138/77
[2021-08-28] MEDS: LEVOFLOXACIN 500 MG/D5W 100 ML 100 ML IV SCH (11:31)
[2021-08-28] MEDS: HYDROMORPHONE 0.5 MG SYG (0.5MG/0.5ML) IV PRN ×2 (11:37→15:55)
[2021-08-28] MEDS ORDERED: LIDOCAINE 5% TOPICAL PATCH TP SCH (12:30)
[2021-08-28 15:05] VITALS: BP 156/116
[2021-08-28 20:00] VITALS: BP 156/62
[2021-08-28] MEDS: CEFTRIAXONE 1G VIAL IVP SCH (20:00)
[2021-08-28] MEDS: TRAZODONE HCL 50 MG TAB PO SCH (20:31)
== END 2021-08-28 20:45 | DRG 157 ==
LOC: EDH 13:36 → EDHIP 17:00 → OBSVTOIN 17:00 → 3CH 23:18
PROVIDERS: ADMIT Internal Medicine Critical Care Medicine; ATTEND Internal Medicine Critical Care Medicine
DX: S02.40CA Maxillary fracture, right side, initial encounter for closed fracture (principal); J18.9 Pneumonia, unspecified organism; E87.1 Hypo-osmolality and hyponatremia; S42.492A Other displaced fracture of lower end of left humerus, initial encounter for closed fracture; N39.0 Urinary tract infection, site not specified; S02.40EA Zygomatic fracture, right side, initial encounter for closed fracture; E11.65 Type 2 diabetes mellitus with hyperglycemia; F32.A Depression, unspecified; E86.0 Dehydration; F41.9 Anxiety disorder, unspecified; F03.90 Unspecified dementia, unspecified severity, without behavioral disturbance, psychotic disturbance, mood disturbance, and anxiety; E03.9 Hypothyroidism, unspecified; M81.0 Age-related osteoporosis without current pathological fracture; G89.29 Other chronic pain; Z96.653 Presence of artificial knee joint, bilateral; D64.9 Anemia, unspecified; S00.83XA Contusion of other part of head, initial encounter; I48.91 Unspecified atrial fibrillation; K59.00 Constipation, unspecified; I10 Essential (primary) hypertension; W06.XXXA Fall from bed, initial encounter; Y93.89 Activity, other specified; Y92.098 Other place in other non-institutional residence as the place of occurrence of the external cause; Y99.8 Other external cause status; Z79.890 Hormone replacement therapy; Z74.01 Bed confinement status; Z88.0 Allergy status to penicillin; Z88.2 Allergy status to sulfonamides; Z88.8 Allergy status to other drugs, medicaments and biological substances; Z51.5 Encounter for palliative care; Z79.82 Long term (current) use of aspirin; Z79.899 Other long term (current) drug therapy; Z86.14 Personal history of Methicillin resistant Staphylococcus aureus infection; Z82.0 Family history of epilepsy and other diseases of the nervous system; Z82.3 Family history of stroke; Z83.3 Family history of diabetes mellitus; Z80.1 Family history of malignant neoplasm of trachea, bronchus and lung; Z82.5 Family history of asthma and other chronic lower respiratory diseases; Z82.49 Family history of ischemic heart disease and other diseases of the circulatory system
CPT/HCPCS: 36415; 70450; 70486; 71045; 71250; 72125; 73020; 73030; 73060; 73070; 74176; 80048; 80053; 81001; 82550; 82948; 83036; 83874; 83880; 84145; 84443; 84484; 85025; 85027; 86850; 86870; 86880; 86900; 86901; 87040; 87088; 92526; 92610; 93005; 94640; 94664; 97039; C9113; G0378; J0456; J0696; J1170; J1650; J1956; J2270; J2405; J7050; J7120

== ENCOUNTER 2021-09-30 12:37 | Inpatient (IN) | payer MEDICARE ==
[~2021-09-30] VITALS: Ht 157.5 cm; Wt 83.1 kg
[~2021-09-30 12:37] MED LIST changes: +DIAZ5TAB4 PO; -LEVO500T90 PO; +LEVO88TA7 PO; +TRAM50TA4 PO
[2021-09-30] MEDS ORDERED: ACETAMINOPHEN 500 MG TABLET PO ONE (13:00)
[2021-09-30] MEDS ORDERED: CEFTRIAXONE 1G VIAL 1 GM in 0.9%NACL 100ML 100 ML IV ONE (13:00)
[2021-09-30] MEDS ORDERED: 0.9%NACL 1000ML 0 ML IV ONE (13:00)
[2021-09-30 13:21] LABS: BASOPHILS % (AUTO) 0.3 % (0.0-5.0); EOSINOPHILS % (AUTO) 1.8 % (0.0-8.0); HEMATOCRIT 28.6 % (36-48); LYMPHOCYTES % (AUTO) 10.6 % (21.0-51.0); MEAN CORPUSCULAR HEMOGLOBIN 25.3 pg (27.0-33.0); MEAN CORPUSCULAR HGB CONC 31.1 g/dL (32.0-36.0); MEAN CORPUSCULAR VOLUME 81.3 fL (79-99); NEUTROPHILS % (AUTO) 81.9 % (40.0-77.0); PLATELET COUNT (AUTO) 320 K/uL (130-400); RED BLOOD CELL COUNT(AUTO) 3.52 MIL/uL (4.00-5.50); RED CELL DISTRIBUTION WIDTH 15.9 % (11.0-15.5); WHITE BLOOD COUNT (AUTO) 9.8 K/uL (4.8-10.8)
[2021-09-30] MEDS ORDERED: 0.9%NACL 1000ML 1,000 ML IV ONE (13:30)
[2021-09-30] MEDS ORDERED: CEFTRIAXONE 1G VIAL IVP SCH (13:30)
[2021-09-30 13:33] LABS: INR 1.1 (0.85-1.15); PROTHROMBIN TIME 11.9 SEC (9.6-11.6)
[2021-09-30 13:43] LABS: ALBUMIN 2.5 g/dL (3.5-5.0); BILIRUBIN,TOTAL 0.5 mg/dL (0.2-1.0); CREATININE 0.7 mg/dL (0.5-1.5); POTASSIUM 4.2 mmol/L (3.5-5.1); TOTAL PROTEIN, SERUM 7.4 g/dL (6.0-8.3)
[2021-09-30 14:07] LABS: B-TYPE NATRIURETIC PEPTIDE 340 pg/mL (0-100)
[2021-09-30] MEDS ORDERED: VANCOMYCIN 1G/250ML KIT 250 ML IV ONE (14:55)
[2021-09-30] MEDS ORDERED: ONDANSETRON 4MG INJ IVP ONE (15:30)
[2021-09-30] MEDS ORDERED: MORPHINE 4 MG SYG IV ONE (15:30)
[2021-09-30] MEDS: VANCOMYCIN 1G VIAL IVPB SCH (15:30)
[2021-09-30] MEDS ORDERED: CEFTRIAXONE 2GM VIAL IVP SCH (16:00)
[2021-09-30] MEDS ORDERED: ACETAMINOPHEN 325 MG TAB PO PRN ×2 (16:00)
[2021-09-30] MEDS ORDERED: ONDANSETRON 4MG INJ IVP PRN (16:00)
[2021-09-30] MEDS ORDERED: VANCOMYCIN PROTOCOL PER PHARMACY IV SCH ×2 (16:00→17:00)
[2021-09-30] MEDS ORDERED: CLONIDINE HCL 0.1 MG TABLET PO PRN (16:00)
[2021-09-30] MEDS ORDERED: METOPROLOL TARTRATE 1 MG/ML 5ML VIAL IV PRN (16:00)
[2021-09-30 16:17] LABS: APPEARANCE,URINE Clear (CLEAR); BILIRUBIN,URINE Negative (NEGATIVE); COLOR,URINE Yellow (YELLOW); GLUCOSE, URINE (UA) Negative (NEGATIVE); KETONES,URINE Trace mg/dL (NEGATIVE); LEUKOCYTE ESTERASE ,URINE Moderate (NEGATIVE); NITRATE,URINE Positive (NEGATIVE); OCCULT BLOOD,URINE Negative (NEGATIVE); PH,URINE 6.5 (5.0-8.0); PROTEIN,URINE 300 mg/dL (NEGATIVE)
[2021-09-30] MEDS ORDERED: POTASSIUM CHLORIDE 20MEQ/100ML 100 ML IV PRN (16:30)
[2021-09-30] MEDS ORDERED: LIDOCAINE HCL-MPF 1% 2ML VIAL IV PRN (16:30)
[2021-09-30] MEDS ORDERED: POTASSIUM CHLORIDE 10% ELIXIR 20 MEQ/15 ML UDCUP PO PRN (16:30)
[2021-09-30] MEDS ORDERED: KCL 20 MEQ ERTAB PO PRN (16:30)
[2021-09-30 16:33] LABS: BACTERIA,URINE Rare /HPF (None Seen); SQUAMOUS EPITHELIAL CELL,UR Rare /HPF (0-2)
[2021-09-30] MEDS: 0.9%NACL 1000ML 1,000 ML IV SCH (16:51)
[2021-09-30] MEDS: MAGNESIUM 2GM PREMIX 50ML 50 ML IV PRN (18:44)
[2021-09-30] MEDS ORDERED: DIAZEPAM 5 MG TABLET PO PRN (21:00)
[2021-10-01 03:50] VITALS: BP 126/54
[2021-10-01 04:28] VITALS: BP 121/49
[2021-10-01 05:27] LABS: HEMATOCRIT 29.5 % (36-48); MEAN CORPUSCULAR HEMOGLOBIN 25.4 pg (27.0-33.0); MEAN CORPUSCULAR HGB CONC 30.5 g/dL (32.0-36.0); MEAN CORPUSCULAR VOLUME 83.1 fL (79-99); PLATELET COUNT (AUTO) 315 K/uL (130-400); RED BLOOD CELL COUNT(AUTO) 3.55 MIL/uL (4.00-5.50); RED CELL DISTRIBUTION WIDTH 15.9 % (11.0-15.5); WHITE BLOOD COUNT (AUTO) 7.8 K/uL (4.8-10.8)
[2021-10-01] MEDS: 0.9%NACL 1000ML 1,000 ML IV SCH ×2 (05:50→20:57)
[2021-10-01 05:51] LABS: CREATININE 0.6 mg/dL (0.5-1.5); MAGNESIUM 1.8 mg/dL (1.80-2.40); PHOSPHORUS 3.4 mg/dL (2.5-4.9); POTASSIUM 3.9 mmol/L (3.5-5.1); THYROID STIMULATING HORMONE 4.69 uIU/mL (0.36-3.74)
[2021-10-01] MEDS: LEVOTHYROXINE 88 MCG TABLET PO SCH ×2 (06:07→06:17)
[2021-10-01] MEDS: MAGNESIUM 2GM PREMIX 50ML 50 ML IV PRN (06:07)
[2021-10-01 06:42] LABS: ABG BASE EXCESS 2.6 mmol/L (-2.0-3.0); ABG HCO3 27.1 mmol/L (21.0-28.0); ABG OXYGEN SATURATION 98.3 % (95.0-99.0); ABG PCO2 42 mmHg (32-45)
[2021-10-01] MEDS ORDERED: COMPOUND IV REFRIGERATED 1 EACH IVSOLN MISC PRN (07:00)
[2021-10-01 07:04] LABS: ALANINE AMINOTRANSFERASE 12 U/L (12-78); ALBUMIN 2.4 g/dL (3.5-5.0); AMMONIA < 10 umol/L (11-32); ASPARTATE AMINOTRANSFERASE 25 U/L (10-37); BILIRUBIN,DIRECT 0.2 mg/dL (0.0-0.3); BILIRUBIN,TOTAL 0.4 mg/dL (0.2-1.0); TOTAL PROTEIN, SERUM 7.1 g/dL (6.0-8.3)
[2021-10-01 08:00] VITALS: BP 169/47
[2021-10-01] MEDS: FAMOTIDINE 20MG TAB PO SCH ×2 (08:58→20:57)
[2021-10-01] MEDS: METOPROLOL SUCCINATE 50 MG TAB.SR.24H PO SCH (08:58)
[2021-10-01] MEDS: VANCOMYCIN 1.25GM/NS 250ML IVPB SCH ×4 (08:59→20:36)
[2021-10-01] MEDS: ENOXAPARIN SODIUM 30 MG/0.3 ML SQ SCH (08:59)
[2021-10-01] MEDS ORDERED: HYDROMORPHONE 0.5 MG SYG (0.5MG/0.5ML) ONE (11:04)
[2021-10-01 12:00] VITALS: BP 166/72
[2021-10-01] MEDS: VANCOMYCIN 1G VIAL IVPB SCH (13:00)
[2021-10-01 16:00] VITALS: BP 146/48
[2021-10-01] MEDS: KETOROLAC 15MG/ML VIAL (15MG/ML) IV SCH ×2 (18:00→23:39)
[2021-10-01 20:12] VITALS: BP 154/73
[2021-10-02] VITALS (7 sets, daily range): BP systolic 114–154; BP diastolic 48–83
[2021-10-02 04:49] LABS: MEAN CORPUSCULAR HEMOGLOBIN 25.4 pg (27.0-33.0); MEAN CORPUSCULAR HGB CONC 30.3 g/dL (32.0-36.0); MEAN CORPUSCULAR VOLUME 83.6 fL (79-99); RED BLOOD CELL COUNT(AUTO) 3.47 MIL/uL (4.00-5.50); RED CELL DISTRIBUTION WIDTH 16.1 % (11.0-15.5); WHITE BLOOD COUNT (AUTO) 8.3 K/uL (4.8-10.8)
[2021-10-02 05:09] LABS: CREATININE 0.6 mg/dL (0.5-1.5); MAGNESIUM 2.3 mg/dL (1.80-2.40); PHOSPHORUS 3.2 mg/dL (2.5-4.9)
[2021-10-02] MEDS: KETOROLAC 15MG/ML VIAL (15MG/ML) IV SCH ×4 (05:55→23:57)
[2021-10-02] MEDS: LEVOTHYROXINE 88 MCG TABLET PO SCH (06:30)
[2021-10-02] MEDS: METOPROLOL SUCCINATE 50 MG TAB.SR.24H PO SCH (09:00)
[2021-10-02] MEDS: FAMOTIDINE 20MG TAB PO SCH ×2 (09:00→22:05)
[2021-10-02] MEDS: VANCOMYCIN 1.25GM/NS 250ML IVPB SCH ×4 (09:03→21:00)
[2021-10-02] MEDS: ENOXAPARIN SODIUM 30 MG/0.3 ML SQ SCH (09:05)
[2021-10-02] MEDS: 0.9%NACL 1000ML 1,000 ML IV SCH (09:06)
[2021-10-02] MEDS: LEVOFLOXACIN 500 MG/D5W 100 ML 100 ML IV SCH (10:54)
[2021-10-02] MEDS ORDERED: BALSAM PERU/CASTOR OIL 60 GM TUBE TP STA (14:56)
[2021-10-02] MEDS: GENTAMICIN 15 GM CREAM TP SCH ×2 (17:04→22:07)
[2021-10-02] MEDS: BALSAM PERU/CASTOR OIL 60 GM TUBE TP SCH (22:07)
[2021-10-03 03:40] VITALS: BP 150/62
[2021-10-03 04:20] LABS: HEMATOCRIT 30.3 % (36-48); MEAN CORPUSCULAR HEMOGLOBIN 25.4 pg (27.0-33.0); MEAN CORPUSCULAR HGB CONC 30.4 g/dL (32.0-36.0); MEAN CORPUSCULAR VOLUME 83.7 fL (79-99); RED BLOOD CELL COUNT(AUTO) 3.62 MIL/uL (4.00-5.50); WHITE BLOOD COUNT (AUTO) 7.8 K/uL (4.8-10.8)
[2021-10-03] MEDS: HYDROMORPHONE 0.5 MG SYG (0.5MG/0.5ML) IVP PRN ×2 (04:34→11:46)
[2021-10-03 04:43] LABS: CREATININE 0.7 mg/dL (0.5-1.5); PHOSPHORUS 2.7 mg/dL (2.5-4.9)
[2021-10-03] MEDS: KETOROLAC 15MG/ML VIAL (15MG/ML) IV SCH ×4 (06:26→23:31)
[2021-10-03] MEDS: 0.9%NACL 1000ML 1,000 ML IV SCH ×2 (06:27→11:32)
[2021-10-03] MEDS: LEVOTHYROXINE 88 MCG TABLET PO SCH (06:29)
[2021-10-03 08:28] VITALS: BP_SYST 113; BP_SYST 136; BP_DIAS 66; BP_DIAS 93
[2021-10-03] MEDS: FAMOTIDINE 20MG TAB PO SCH ×2 (08:40→21:15)
[2021-10-03] MEDS: METOPROLOL SUCCINATE 50 MG TAB.SR.24H PO SCH (08:40)
[2021-10-03] MEDS: ENOXAPARIN SODIUM 30 MG/0.3 ML SQ SCH (08:41)
[2021-10-03] MEDS: VANCOMYCIN 1.25GM/NS 250ML IVPB SCH ×2 (09:00)
[2021-10-03] MEDS: GENTAMICIN 15 GM CREAM TP SCH ×4 (10:22→21:16)
[2021-10-03] MEDS: BALSAM PERU/CASTOR OIL 60 GM TUBE TP SCH ×3 (10:22→21:16)
[2021-10-03] MEDS: LEVOFLOXACIN 500 MG/D5W 100 ML 100 ML IV SCH (11:32)
[2021-10-03 11:55] VITALS: BP 189/94
[2021-10-03 16:24] VITALS: BP 164/87
[2021-10-03 20:09] VITALS: BP 132/68
[2021-10-03 23:32] VITALS: BP 128/98
[2021-10-04] MEDS ORDERED: ZIPRASIDONE MESYLATE 20 MG/VIAL IM STA (02:29)
[2021-10-04 04:13] LABS: HEMATOCRIT 31.7 % (36-48); MEAN CORPUSCULAR HEMOGLOBIN 25.4 pg (27.0-33.0); MEAN CORPUSCULAR HGB CONC 30.3 g/dL (32.0-36.0); MEAN CORPUSCULAR VOLUME 83.9 fL (79-99); RED BLOOD CELL COUNT(AUTO) 3.78 MIL/uL (4.00-5.50); RED CELL DISTRIBUTION WIDTH 16.1 % (11.0-15.5)
[2021-10-04 04:28] LABS: CREATININE 0.7 mg/dL (0.5-1.5); MAGNESIUM 1.8 mg/dL (1.80-2.40); PHOSPHORUS 2.6 mg/dL (2.5-4.9)
[2021-10-04 05:05] VITALS: BP 161/82
[2021-10-04] MEDS: LEVOTHYROXINE 88 MCG TABLET PO SCH (06:30)
[2021-10-04] MEDS: KETOROLAC 15MG/ML VIAL (15MG/ML) IV SCH ×3 (06:33→18:09)
[2021-10-04 08:17] VITALS: BP 190/92
[2021-10-04] MEDS ORDERED: HYDRALAZINE 25MG TABLET PO PRN (08:30)
[2021-10-04] MEDS ORDERED: MAGNESIUM 2GM PREMIX 50ML 50 ML IV SCH (09:00)
[2021-10-04] MEDS ORDERED: 0.9% NACL 250ML 250 ML ONE (09:20)
[2021-10-04] MEDS: VANCOMYCIN 1G/250ML KIT 250 ML IV SCH (09:24)
[2021-10-04] MEDS: FAMOTIDINE 20MG TAB PO SCH ×2 (09:25→22:41)
[2021-10-04] MEDS: AMLODIPINE 5 MG TAB PO SCH (09:25)
[2021-10-04] MEDS: METOPROLOL SUCCINATE 50 MG TAB.SR.24H PO SCH (09:25)
[2021-10-04] MEDS: ENOXAPARIN SODIUM 30 MG/0.3 ML SQ SCH (09:25)
[2021-10-04] MEDS: BALSAM PERU/CASTOR OIL 60 GM TUBE TP SCH ×3 (09:36→22:43)
[2021-10-04] MEDS: GENTAMICIN 15 GM CREAM TP SCH ×4 (09:36→22:43)
[2021-10-04] MEDS: LEVOFLOXACIN 500 MG/D5W 100 ML 100 ML IV SCH (10:30)
[2021-10-04 12:05] VITALS: BP 143/49
[2021-10-04 12:23] LABS: INR 1.08 (0.85-1.15); PROTHROMBIN TIME 11.7 SEC (9.6-11.6)
[2021-10-04 12:24] LABS: PARTIAL THROMBOPLASTIN TIME 39.2 SEC (26.3-35.5)
[2021-10-04] MEDS ORDERED: FUROSEMIDE 40MG VIAL IVP SCH (14:30)
[2021-10-04 17:31] VITALS: BP 164/76
[2021-10-04 20:17] VITALS: BP 160/101
[2021-10-04 23:45] VITALS: BP 152/89
[2021-10-05] MEDS: KETOROLAC 15MG/ML VIAL (15MG/ML) IV SCH ×3 (01:30→11:18)
[2021-10-05 04:41] VITALS: BP 175/103
[2021-10-05] MEDS: HYDRALAZINE 20MG/ML VIAL IV PRN ×3 (04:46→20:40)
[2021-10-05] MEDS: LEVOTHYROXINE 88 MCG TABLET PO SCH (05:59)
[2021-10-05 06:12] LABS: HEMATOCRIT 31.1 % (36-48); MEAN CORPUSCULAR HEMOGLOBIN 25.3 pg (27.0-33.0); MEAN CORPUSCULAR HGB CONC 30.2 g/dL (32.0-36.0); MEAN CORPUSCULAR VOLUME 83.6 fL (79-99); NUCLEATED RED BLOOD CELLS 0.2 % (0.0-0.19); RED BLOOD CELL COUNT(AUTO) 3.72 MIL/uL (4.00-5.50); RED CELL DISTRIBUTION WIDTH 16.5 % (11.0-15.5); WHITE BLOOD COUNT (AUTO) 8.1 K/uL (4.8-10.8)
[2021-10-05 06:29] LABS: CREATININE 0.7 mg/dL (0.5-1.5); MAGNESIUM 1.6 mg/dL (1.80-2.40); PHOSPHORUS 2.4 mg/dL (2.5-4.9); POTASSIUM 3.5 mmol/L (3.5-5.1)
[2021-10-05 08:00] VITALS: BP 168/82
[2021-10-05] MEDS ORDERED: 0.9% NACL 250ML 250 ML ONE (09:19)
[2021-10-05] MEDS: VANCOMYCIN 1G/250ML KIT 250 ML IV SCH (09:26)
[2021-10-05] MEDS: ENOXAPARIN SODIUM 30 MG/0.3 ML SQ SCH (09:27)
[2021-10-05] MEDS: LEVOFLOXACIN 500 MG/D5W 100 ML 100 ML IV SCH (09:27)
[2021-10-05] MEDS: METOPROLOL SUCCINATE 50 MG TAB.SR.24H PO SCH (09:28)
[2021-10-05] MEDS: AMLODIPINE 5 MG TAB PO SCH (09:28)
[2021-10-05] MEDS: FAMOTIDINE 20MG TAB PO SCH ×2 (09:28→20:37)
[2021-10-05] MEDS: GENTAMICIN 15 GM CREAM TP SCH ×4 (09:29→20:40)
[2021-10-05] MEDS: BALSAM PERU/CASTOR OIL 60 GM TUBE TP SCH ×3 (09:56→20:40)
[2021-10-05] MEDS: MAGNESIUM 2GM PREMIX 50ML 50 ML IV SCH (11:19)
[2021-10-05] MEDS: POTASSIUM PHOS 15 mMOL+NS250ML 250 ML IV SCH (11:20)
[2021-10-05 12:00] VITALS: BP 166/78
[2021-10-05] MEDS ORDERED: FUROSEMIDE 20MG VIAL IV ONE (15:00)
[2021-10-05 16:00] VITALS: BP 183/98
[2021-10-05] MEDS: TRAMADOL HCL 50 MG TABLET PO PRN (16:57)
[2021-10-05 20:38] VITALS: BP 181/94
[2021-10-06] VITALS (7 sets, daily range): BP systolic 122–191; BP diastolic 71–97
[2021-10-06] MEDS: TRAMADOL HCL 50 MG TABLET PO PRN ×2 (03:29→15:34)
[2021-10-06 06:08] LABS: HEMATOCRIT 31.2 % (36-48); MEAN CORPUSCULAR HEMOGLOBIN 25.1 pg (27.0-33.0); MEAN CORPUSCULAR HGB CONC 30.8 g/dL (32.0-36.0); MEAN CORPUSCULAR VOLUME 81.5 fL (79-99); RED BLOOD CELL COUNT(AUTO) 3.83 MIL/uL (4.00-5.50); RED CELL DISTRIBUTION WIDTH 17.1 % (11.0-15.5); WHITE BLOOD COUNT (AUTO) 8.1 K/uL (4.8-10.8)
[2021-10-06] MEDS: LEVOTHYROXINE 88 MCG TABLET PO SCH (06:17)
[2021-10-06 06:51] LABS: CREATININE 0.7 mg/dL (0.5-1.5); MAGNESIUM 1.9 mg/dL (1.80-2.40); POTASSIUM 3.7 mmol/L (3.5-5.1)
[2021-10-06] MEDS: MAGNESIUM 2GM PREMIX 50ML 50 ML IV SCH (07:30)
[2021-10-06] MEDS: POTASSIUM PHOS 15 mMOL+NS250ML 250 ML IV SCH (07:30)
[2021-10-06] MEDS: METOPROLOL SUCCINATE 50 MG TAB.SR.24H PO SCH (10:00)
[2021-10-06] MEDS: ENOXAPARIN SODIUM 30 MG/0.3 ML SQ SCH (10:00)
[2021-10-06] MEDS: FAMOTIDINE 20MG TAB PO SCH ×2 (10:01→21:09)
[2021-10-06] MEDS: AMLODIPINE 5 MG TAB PO SCH (10:01)
[2021-10-06] MEDS: VANCOMYCIN 1G/250ML KIT 250 ML IV SCH (10:02)
[2021-10-06] MEDS: GENTAMICIN 15 GM CREAM TP SCH ×3 (10:03→21:00)
[2021-10-06] MEDS: LEVOFLOXACIN 500 MG/D5W 100 ML 100 ML IV SCH (10:03)
[2021-10-06] MEDS: BALSAM PERU/CASTOR OIL 60 GM TUBE TP SCH ×3 (10:03→21:00)
[2021-10-06] MEDS ORDERED: FUROSEMIDE 20MG VIAL IV SCH (14:00)
[2021-10-06] MEDS ORDERED: CLONIDINE 0.1 MG/ 24 HR PATCH TD SCH (14:00)
[2021-10-06] MEDS ORDERED: METOPROLOL TARTRATE 50 MG TAB PO ONE (14:00)
[2021-10-06] MEDS: METOPROLOL TARTRATE 50 MG TAB PO SCH (21:10)
[2021-10-07 01:18] VITALS: BP 168/81
[2021-10-07 04:25] VITALS: BP 156/88
[2021-10-07 05:27] LABS: HEMATOCRIT 30.6 % (36-48); MEAN CORPUSCULAR HEMOGLOBIN 25.6 pg (27.0-33.0); MEAN CORPUSCULAR HGB CONC 30.7 g/dL (32.0-36.0); MEAN CORPUSCULAR VOLUME 83.4 fL (79-99); RED BLOOD CELL COUNT(AUTO) 3.67 MIL/uL (4.00-5.50); RED CELL DISTRIBUTION WIDTH 16.8 % (11.0-15.5); WHITE BLOOD COUNT (AUTO) 8.1 K/uL (4.8-10.8)
[2021-10-07 06:06] LABS: CREATININE 0.6 mg/dL (0.5-1.5); POTASSIUM 4.4 mmol/L (3.5-5.1)
[2021-10-07] MEDS: LEVOTHYROXINE 88 MCG TABLET PO SCH (06:09)
[2021-10-07 08:00] VITALS: BP 150/90
[2021-10-07] MEDS ORDERED: METO50 PO (08:52)
[2021-10-07] MEDS ORDERED: LEVO500T90 PO (08:52)
[2021-10-07] MEDS ORDERED: CLON1PAT TD (08:52)
[2021-10-07] MEDS ORDERED: AMLO5TAB4 PO (08:52)
[2021-10-07] MEDS ORDERED: METOPROLOL SUCCINATE 50 MG TAB.SR.24H PO SCH (09:00)
[2021-10-07] MEDS: AMLODIPINE 5 MG TAB PO SCH (09:10)
[2021-10-07] MEDS: METOPROLOL TARTRATE 50 MG TAB PO SCH (09:10)
[2021-10-07] MEDS: FAMOTIDINE 20MG TAB PO SCH (09:10)
[2021-10-07] MEDS: ENOXAPARIN SODIUM 30 MG/0.3 ML SQ SCH (09:10)
[2021-10-07] MEDS: BALSAM PERU/CASTOR OIL 60 GM TUBE TP SCH (09:13)
[2021-10-07] MEDS: GENTAMICIN 15 GM CREAM TP SCH (09:13)
[2021-10-07 12:00] VITALS: BP 186/96
== END 2021-10-07 13:45 | disposition home or self-care (01) | DRG 698 ==
LOC: EDH 12:37 → OBSVTOIN 15:55 → EDHIP 15:55 → 3AH 10-01 03:31
PROVIDERS: ADMIT Internal Medicine Critical Care Medicine; ATTEND Internal Medicine Critical Care Medicine
PROC: 02HV33Z Insertion of Infusion Device into Superior Vena Cava, Percutaneous Approach (ICD-10-PCS; principal; 2021-10-04)
DX: T83.518A Infection and inflammatory reaction due to other urinary catheter, initial encounter (principal); G93.41 Metabolic encephalopathy; I50.33 Acute on chronic diastolic (congestive) heart failure; N39.0 Urinary tract infection, site not specified; L03.115 Cellulitis of right lower limb; Z16.24 Resistance to multiple antibiotics; I48.91 Unspecified atrial fibrillation; F03.90 Unspecified dementia, unspecified severity, without behavioral disturbance, psychotic disturbance, mood disturbance, and anxiety; E11.9 Type 2 diabetes mellitus without complications; E03.9 Hypothyroidism, unspecified; D64.9 Anemia, unspecified; F20.9 Schizophrenia, unspecified; F41.9 Anxiety disorder, unspecified; B96.5 Pseudomonas (aeruginosa) (mallei) (pseudomallei) as the cause of diseases classified elsewhere; K55.20 Angiodysplasia of colon without hemorrhage; Z20.822 Contact with and (suspected) exposure to COVID-19; G89.29 Other chronic pain; M19.90 Unspecified osteoarthritis, unspecified site; E78.00 Pure hypercholesterolemia, unspecified; M81.0 Age-related osteoporosis without current pathological fracture; Z96.659 Presence of unspecified artificial knee joint; L89.322 Pressure ulcer of left buttock, stage 2; L89.312 Pressure ulcer of right buttock, stage 2; R53.81 Other malaise; I11.0 Hypertensive heart disease with heart failure; Y84.6 Urinary catheterization as the cause of abnormal reaction of the patient, or of later complication, without mention of misadventure at the time of the procedure; E66.9 Obesity, unspecified; Z68.33 Body mass index [BMI] 33.0-33.9, adult; Z79.82 Long term (current) use of aspirin; Z79.890 Hormone replacement therapy; Z79.899 Other long term (current) drug therapy; Z74.01 Bed confinement status; Z88.0 Allergy status to penicillin; Z88.2 Allergy status to sulfonamides; Z88.8 Allergy status to other drugs, medicaments and biological substances; Z86.14 Personal history of Methicillin resistant Staphylococcus aureus infection; Y92.89 Other specified places as the place of occurrence of the external cause
CPT/HCPCS: 36415; 36600; 70450; 71045; 74176; 80048; 80053; 80076; 80202; 81001; 82140; 82550; 82607; 82746; 82803; 82948; 83605; 83735; 83880; 84100; 84145; 84443; 84484; 85025; 85027; 85610; 85730; 87040; 87070; 87077; 87088; 87186; 87635; 87804; 92610; 93005; 93971; C1894; C9803; G0378; J0360; J1170; J1650; J1885; J1940; J1956; J2270; J2405; J3370; J3475; J3486; J3490; J7030; J7050

== ENCOUNTER 2021-10-07 18:24 | Observation (INO) | payer MEDICARE ==
[~2021-10-07 18:24] MED LIST changes: +AMLO5TAB4 PO; +CLON1PAT TD; +LEVO500T90 PO; +METO50 PO
[2021-10-07 20:14] LABS: BASOPHILS % (AUTO) 0.4 % (0.0-5.0); EOSINOPHILS % (AUTO) 3.1 % (0.0-8.0); HEMATOCRIT 31.2 % (36-48); LYMPHOCYTES % (AUTO) 18.5 % (21.0-51.0); MEAN CORPUSCULAR HEMOGLOBIN 24.9 pg (27.0-33.0); MEAN CORPUSCULAR HGB CONC 30.1 g/dL (32.0-36.0); MEAN CORPUSCULAR VOLUME 82.8 fL (79-99); MONOCYTES % (AUTO) 7.9 % (3.0-13.0); NEUTROPHILS % (AUTO) 69.7 % (40.0-77.0); PLATELET COUNT (AUTO) 267 K/uL (130-400); RED BLOOD CELL COUNT(AUTO) 3.77 MIL/uL (4.00-5.50); RED CELL DISTRIBUTION WIDTH 16.8 % (11.0-15.5); WHITE BLOOD COUNT (AUTO) 8.2 K/uL (4.8-10.8)
[2021-10-07 20:27] LABS: CREATININE 0.7 mg/dL (0.5-1.5); POTASSIUM 3.9 mmol/L (3.5-5.1)
[2021-10-07 20:32] LABS: ALBUMIN 2.5 g/dL (3.5-5.0); BILIRUBIN,TOTAL 0.4 mg/dL (0.2-1.0); MAGNESIUM 1.6 mg/dL (1.80-2.40); TOTAL PROTEIN, SERUM 7.1 g/dL (6.0-8.3)
[2021-10-07 20:38] LABS: B-TYPE NATRIURETIC PEPTIDE 659 pg/mL (0-100)
[2021-10-07 21:50] LABS: ABG BASE EXCESS 1.7 mmol/L (-2.0-3.0); ABG OXYGEN SATURATION 96.5 % (95.0-99.0); ABG PCO2 46 mmHg (32-45)
[2021-10-07] MEDS ORDERED: LACTULOSE 20 GM/30 ML UDCUP PO PRN (22:00)
[2021-10-07] MEDS ORDERED: MAG/ALUM/SIMETH 30 ML UDCUP PO PRN (22:00)
[2021-10-07] MEDS ORDERED: ONDANSETRON 4MG INJ IV PRN (22:00)
[2021-10-07] MEDS ORDERED: GUAIFENESIN-DM 200/20 MG 10 ML PO PRN (22:00)
[2021-10-07] MEDS ORDERED: NITROGLYCERIN 0.4 MG SL TAB SL PRN (22:00)
[2021-10-07] MEDS ORDERED: GLUCAGON 1MG KIT 1 MG ML IM PRN (23:00)
[2021-10-07] MEDS ORDERED: TRAMADOL HCL 50 MG TABLET PO SCH (23:00)
[2021-10-07] MEDS ORDERED: MAGNESIUM 2GM PREMIX 50ML 50 ML IV PRN (23:00)
[2021-10-07] MEDS ORDERED: POTASSIUM CHLORIDE 10% ELIXIR 20 MEQ/15 ML UDCUP PO PRN (23:00)
[2021-10-07] MEDS ORDERED: POTASSIUM CHLORIDE 20MEQ/100ML 100 ML IV PRN (23:00)
[2021-10-07] MEDS ORDERED: KCL 20 MEQ ERTAB PO PRN (23:00)
[2021-10-07] MEDS ORDERED: CLONIDINE 0.1 MG/ 24 HR PATCH TD ONE (23:00)
[2021-10-07] MEDS ORDERED: DEXTROSE 50%-WATER 50 ML DISP.SYRIN IV PRN (23:00)
[2021-10-08] MEDS ORDERED: FUROSEMIDE 40MG VIAL IV ONE
[2021-10-08] MEDS: FUROSEMIDE 40MG VIAL IV SCH ×2 (01:10→12:12)
[2021-10-08] MEDS ORDERED: IOHEXOL 350 MG/ML 100ML INFUS..BTL IV ONE (04:00)
[2021-10-08] MEDS ORDERED: LEVOTHYROXINE 88 MCG TABLET PO SCH (06:00)
[2021-10-08 06:31] LABS: HEMATOCRIT 30.3 % (36-48); MEAN CORPUSCULAR HEMOGLOBIN 24.8 pg (27.0-33.0); MEAN CORPUSCULAR HGB CONC 30.4 g/dL (32.0-36.0); MEAN CORPUSCULAR VOLUME 81.7 fL (79-99); PLATELET COUNT (AUTO) 274 K/uL (130-400); RED BLOOD CELL COUNT(AUTO) 3.71 MIL/uL (4.00-5.50); RED CELL DISTRIBUTION WIDTH 16.6 % (11.0-15.5); WHITE BLOOD COUNT (AUTO) 7.4 K/uL (4.8-10.8)
[2021-10-08 07:12] LABS: CREATININE 0.6 mg/dL (0.5-1.5); POTASSIUM 3.6 mmol/L (3.5-5.1)
[2021-10-08] MEDS: INSULIN HUMULIN R 100 UNIT/ML 3ML SQ SCH ×3 (07:30→16:30)
[2021-10-08] MEDS ORDERED: METOPROLOL TARTRATE 50 MG TAB PO SCH (09:00)
[2021-10-08] MEDS ORDERED: FAMOTIDINE 20MG VIAL IV SCH (09:00)
[2021-10-08] MEDS ORDERED: ENOXAPARIN SODIUM 30 MG/0.3 ML SQ SCH (09:00)
[2021-10-08] MEDS ORDERED: AMLODIPINE 5 MG TAB PO SCH (09:00)
[2021-10-08] MEDS: TRAMADOL HCL 50 MG TABLET PO PRN ×2 (11:45→18:47)
[2021-10-08 23:55] VITALS: BP 143/42
== END 2021-10-09 01:05 | disposition home or self-care (01) ==
LOC: EDH 18:24 → EDHIP 21:01
PROVIDERS: ADMIT Internal Medicine Critical Care Medicine; ATTEND Internal Medicine Critical Care Medicine
DX: J12.9 Viral pneumonia, unspecified (principal); Z20.822 Contact with and (suspected) exposure to COVID-19; I11.0 Hypertensive heart disease with heart failure; I50.32 Chronic diastolic (congestive) heart failure; E11.9 Type 2 diabetes mellitus without complications; R79.89 Other specified abnormal findings of blood chemistry; D63.8 Anemia in other chronic diseases classified elsewhere; F03.90 Unspecified dementia, unspecified severity, without behavioral disturbance, psychotic disturbance, mood disturbance, and anxiety; F20.9 Schizophrenia, unspecified; F41.9 Anxiety disorder, unspecified; E03.9 Hypothyroidism, unspecified; M81.0 Age-related osteoporosis without current pathological fracture; R33.9 Retention of urine, unspecified; L89.152 Pressure ulcer of sacral region, stage 2; M21.372 Foot drop, left foot; M21.371 Foot drop, right foot; L98.429 Non-pressure chronic ulcer of back with unspecified severity; G93.41 Metabolic encephalopathy; I48.91 Unspecified atrial fibrillation; N39.0 Urinary tract infection, site not specified; B96.5 Pseudomonas (aeruginosa) (mallei) (pseudomallei) as the cause of diseases classified elsewhere; E78.00 Pure hypercholesterolemia, unspecified; I25.10 Atherosclerotic heart disease of native coronary artery without angina pectoris; G89.29 Other chronic pain; L03.115 Cellulitis of right lower limb; E87.70 Fluid overload, unspecified; Z74.01 Bed confinement status; Z87.440 Personal history of urinary (tract) infections; Z86.14 Personal history of Methicillin resistant Staphylococcus aureus infection; Z96.659 Presence of unspecified artificial knee joint; Z99.81 Dependence on supplemental oxygen; Z79.890 Hormone replacement therapy; Z79.82 Long term (current) use of aspirin; Z88.0 Allergy status to penicillin; Z79.899 Other long term (current) drug therapy
CPT/HCPCS: 36415 ×2; 36600 ×2; 71045; 71275; 80048; 80053; 82435; 82803; 82947; 82948 ×2; 83605; 83735; 83880; 84132; 84145; 84295; 84484 ×2; 85018; 85025; 85027; 85378; 87635; 93005 ×2; 94760 ×2; 96365; 96372; 96375; 96376; 99285; G0378 ×27; J1650; J1940; J3475; J3490; Q9967

== ENCOUNTER 2022-03-31 09:03 | Inpatient (IN) | payer MEDICARE ==
[~2022-03-31] VITALS: Ht 162.6 cm; Wt 75.7 kg
[~2022-03-31 09:03] MED LIST changes: -LEVO75TA10 PO
[2022-03-31] MEDS ORDERED: 0.9%NACL 1000ML 2,000 ML IV ONE (09:30)
[2022-03-31 09:54] LABS: BASOPHILS % (AUTO) 0.2 % (0.0-5.0); EOSINOPHILS % (AUTO) 0.1 % (0.0-8.0); HEMATOCRIT 32.4 % (36-48); LYMPHOCYTES % (AUTO) 7.8 % (21.0-51.0); MEAN CORPUSCULAR HEMOGLOBIN 26.6 pg (27.0-33.0); MEAN CORPUSCULAR HGB CONC 32.4 g/dL (32.0-36.0); MONOCYTES % (AUTO) 3.4 % (3.0-13.0); NEUTROPHILS % (AUTO) 87.9 % (40.0-77.0); PLATELET COUNT (AUTO) 244 K/uL (130-400); RED BLOOD CELL COUNT(AUTO) 3.95 MIL/uL (4.00-5.50); RED CELL DISTRIBUTION WIDTH 15.7 % (11.0-15.5); WHITE BLOOD COUNT (AUTO) 19.2 K/uL (4.8-10.8)
[2022-03-31 10:13] LABS: ALBUMIN 2.4 g/dL (3.5-5.0); BILIRUBIN,TOTAL 0.5 mg/dL (0.2-1.0); CREATININE 0.7 mg/dL (0.5-1.5); POTASSIUM 4.5 mmol/L (3.5-5.1); TOTAL PROTEIN, SERUM 7.3 g/dL (6.0-8.3)
[2022-03-31 10:29] LABS: APPEARANCE,URINE Turbid (CLEAR); BILIRUBIN,URINE Negative (NEGATIVE); COLOR,URINE Dark Yellow (YELLOW); GLUCOSE, URINE (UA) Negative (NEGATIVE); KETONES,URINE Trace mg/dL (NEGATIVE); LEUKOCYTE ESTERASE ,URINE Large (NEGATIVE); NITRATE,URINE Positive (NEGATIVE); OCCULT BLOOD,URINE Large (NEGATIVE); PH,URINE 5.5 (5.0-8.0); PROTEIN,URINE >=1000 mg/dL (NEGATIVE)
[2022-03-31 10:56] LABS: BACTERIA,URINE Few /HPF (None Seen); RBC,URINE >100 /HPF (0-1); SQUAMOUS EPITHELIAL CELL,UR Rare /HPF (0-2); WBC,URINE 26-50 /HPF (0-1)
[2022-03-31] MEDS ORDERED: CEFTRIAXONE 2GM VIAL IVP ONE (11:00)
[2022-03-31] MEDS ORDERED: CEFTRIAXONE 2GM VIAL ONE (11:01)
[2022-03-31] MEDS ORDERED: ONDANSETRON 4MG INJ IV PRN (14:30)
[2022-03-31] MEDS ORDERED: VANCOMYCIN PROTOCOL PER PHARMACY IV PRN (14:30)
[2022-03-31] MEDS ORDERED: 0.9%NACL 1000ML 1,000 ML IV SCH (14:30)
[2022-03-31] MEDS ORDERED: ACETAMINOPHEN 325 MG TAB PO PRN ×2 (14:30)
[2022-03-31 15:09] LABS: RETICULOCYTE % (AUTO) 2.5 % (0.42-2.23)
[2022-03-31 15:21] LABS: PROTHROMBIN TIME 10.9 SEC (9.6-11.6)
[2022-03-31] MEDS: 0.9%NACL 1000ML 1,000 ML IV SCH (15:23)
[2022-03-31] MEDS: MEROPENEM 500 MG VIAL IV SCH ×2 (15:23→23:00)
[2022-03-31] MEDS: VANCOMYCIN 1G/250ML KIT 250 ML IV SCH (15:23)
[2022-03-31 15:40] LABS: % IRON SATURATION 11.2 % (22-44)
[2022-03-31 16:02] LABS: PROTEIN,URINE RANDOM 1005.5 mg/dL (0-11.9)
[2022-03-31] MEDS: FAMOTIDINE 20MG VIAL IV SCH (22:11)
[2022-03-31] MEDS: HYDROCORTISONE SOD SUCCINATE 100 MG/2 ML VIAL IV SCH (22:11)
[2022-03-31] MEDS ORDERED: 0.9% NACL 250ML 250 ML ONE (23:08)
[2022-04-01] MEDS: VANCOMYCIN 1G/250ML KIT 250 ML IV SCH ×2 (00:02→08:18)
[2022-04-01 00:15] VITALS: BP 118/83
[2022-04-01] MEDS ORDERED: TRAMADOL HCL 50 MG TABLET PO PRN (01:30)
[2022-04-01] MEDS: HYDROMORPHONE 0.5 MG SYG (0.5MG/0.5ML) IVP PRN ×3 (03:14→14:43)
[2022-04-01 03:15] VITALS: BP 108/45
[2022-04-01 03:39] LABS: BASOPHILS % (AUTO) 0.2 % (0.0-5.0); EOSINOPHILS % (AUTO) 0.2 % (0.0-8.0); HEMATOCRIT 32.2 % (36-48); LYMPHOCYTES % (AUTO) 3.9 % (21.0-51.0); MEAN CORPUSCULAR HEMOGLOBIN 26.2 pg (27.0-33.0); MEAN CORPUSCULAR HGB CONC 31.7 g/dL (32.0-36.0); MEAN CORPUSCULAR VOLUME 82.8 fL (79-99); PLATELET COUNT (AUTO) 167 K/uL (130-400); RED BLOOD CELL COUNT(AUTO) 3.89 MIL/uL (4.00-5.50); RED CELL DISTRIBUTION WIDTH 15.9 % (11.0-15.5)
[2022-04-01] MEDS: 0.9%NACL 1000ML 1,000 ML IV SCH ×2 (05:41→08:02)
[2022-04-01] MEDS: MEROPENEM 500 MG VIAL IV SCH ×3 (06:36→22:40)
[2022-04-01 07:31] VITALS: BP 123/66
[2022-04-01] MEDS: FAMOTIDINE 20MG VIAL IV SCH ×2 (08:02→21:53)
[2022-04-01] MEDS: ENOXAPARIN SODIUM 40 MG/0.4 ML SYRINGE SQ SCH (08:10)
[2022-04-01] MEDS: HYDROCORTISONE SOD SUCCINATE 100 MG/2 ML VIAL IV SCH ×3 (08:17→21:53)
[2022-04-01] MEDS: NYSTATIN 15 GM POWDER TP SCH ×2 (11:49→21:53)
[2022-04-01 12:00] VITALS: BP 108/71
[2022-04-01] MEDS ORDERED: COMPOUND IV MISC 1 EACH IVSOLN MISC PRN (14:30)
[2022-04-01 16:00] VITALS: BP 116/56
[2022-04-01] MEDS: IRON SUCROSE COMPLEX 300 MG in 0.9%NACL 50ML 50 ML IV SCH (18:07)
[2022-04-01 19:09] VITALS: BP 107/41
[2022-04-02] VITALS (7 sets, daily range): BP systolic 116–200; BP diastolic 54–108
[2022-04-02] MEDS: MEROPENEM 500 MG VIAL IV SCH (05:39)
[2022-04-02] MEDS: HYDROMORPHONE 0.5 MG SYG (0.5MG/0.5ML) IVP PRN ×2 (06:14→11:54)
[2022-04-02] MEDS: 0.9%NACL 1000ML 1,000 ML IV SCH (06:30)
[2022-04-02 08:57] LABS: BASOPHILS % (AUTO) 0.3 % (0.0-5.0); EOSINOPHILS % (AUTO) 0.8 % (0.0-8.0); LYMPHOCYTES % (AUTO) 5.1 % (21.0-51.0); MEAN CORPUSCULAR HEMOGLOBIN 25.7 pg (27.0-33.0); MEAN CORPUSCULAR HGB CONC 31.6 g/dL (32.0-36.0); MEAN CORPUSCULAR VOLUME 81.2 fL (79-99); MONOCYTES % (AUTO) 4.4 % (3.0-13.0); NEUTROPHILS % (AUTO) 87.5 % (40.0-77.0); PLATELET COUNT (AUTO) 283 K/uL (130-400); RED BLOOD CELL COUNT(AUTO) 3.82 MIL/uL (4.00-5.50); RED CELL DISTRIBUTION WIDTH 15.8 % (11.0-15.5); WHITE BLOOD COUNT (AUTO) 10.2 K/uL (4.8-10.8)
[2022-04-02 09:05] LABS: HEMOGLOBIN A1C 6.6 % (4.0-6.0)
[2022-04-02] MEDS: ENOXAPARIN SODIUM 40 MG/0.4 ML SYRINGE SQ SCH (09:07)
[2022-04-02] MEDS: ASCORBIC ACID 500 MG TAB PO SCH (09:07)
[2022-04-02] MEDS: DRONABINOL 2.5 MG CAP PO ONE ×2 (09:07→09:14)
[2022-04-02] MEDS: ZINC SULFATE 220 CAPSULE PO SCH (09:07)
[2022-04-02] MEDS: HYDROCORTISONE SOD SUCCINATE 100 MG/2 ML VIAL IV SCH (09:07)
[2022-04-02] MEDS: FAMOTIDINE 20MG VIAL IV SCH ×2 (09:07→20:24)
[2022-04-02] MEDS: NYSTATIN 15 GM POWDER TP SCH ×2 (09:08→20:34)
[2022-04-02 09:18] LABS: CREATININE 0.8 mg/dL (0.5-1.5); POTASSIUM 3.4 mmol/L (3.5-5.1)
[2022-04-02 09:21] LABS: MAGNESIUM 1.4 mg/dL (1.80-2.40); PHOSPHORUS 2.9 mg/dL (2.5-4.9)
[2022-04-02 09:26] LABS: CHOLESTEROL 158 mg/dL (<200); HDL CHOLESTEROL 46 mg/dL (35-85); LDL DIRECT 80 mg/dL (0-99); TRIGLYCERIDES 139 mg/dL (30-200)
[2022-04-02] MEDS ORDERED: POTASSIUM CHLORIDE 20MEQ/100ML 100 ML IV PRN (10:30)
[2022-04-02] MEDS: INSULIN HUMULIN R 100 UNIT/ML 3ML SQ SCH ×3 (11:30→20:41)
[2022-04-02] MEDS: POTASSIUM CHLORIDE 10% ELIXIR 20 MEQ/15 ML UDCUP PO PRN ×2 (11:54→20:24)
[2022-04-02] MEDS ORDERED: LABETALOL 20MG VIAL IV PRN (12:00)
[2022-04-02] MEDS: NIFEDIPINE 10 MG CAP PO SCH ×3 (12:18→20:24)
[2022-04-02] MEDS: HYDROCHLOROTHIAZIDE 25 MG TABLET PO SCH (12:18)
[2022-04-02] MEDS: LABETALOL 20MG VIAL IV SCH (13:00)
[2022-04-02] MEDS ORDERED: HYDROCORTISONE SOD SUCCINATE 100 MG/2 ML VIAL IV SCH (14:00)
[2022-04-02] MEDS: CEFEPIME HCL 1 GM VIAL IVP SCH (16:26)
[2022-04-02] MEDS: MAGNESIUM 2GM PREMIX 50ML 50 ML IV PRN (16:28)
[2022-04-02 17:24] LABS: INR 0.98 (0.85-1.15); PROTHROMBIN TIME 10.7 SEC (9.6-11.6)
[2022-04-02 17:25] LABS: PARTIAL THROMBOPLASTIN TIME 29.3 SEC (26.3-35.5)
[2022-04-02] MEDS: IRON SUCROSE COMPLEX 300 MG in 0.9%NACL 50ML 50 ML IV SCH (21:27)
[2022-04-03] VITALS: BP 124/70
[2022-04-03] MEDS: HYDROMORPHONE 0.5 MG SYG (0.5MG/0.5ML) IVP PRN (00:56)
[2022-04-03] MEDS: 0.9%NACL 1000ML 1,000 ML IV SCH ×2 (01:09→16:46)
[2022-04-03] MEDS ORDERED: ZOLPIDEM TARTRATE 5 MG TAB ONE (01:55)
[2022-04-03] MEDS ORDERED: ZOLPIDEM TARTRATE 5 MG TAB PO ONE (02:00)
[2022-04-03] MEDS: CEFEPIME HCL 1 GM VIAL IVP SCH ×2 (02:49→16:32)
[2022-04-03] MEDS ORDERED: LORAZEPAM 2 MG/ML 1 ML VIAL ONE (03:27)
[2022-04-03] MEDS ORDERED: LORAZEPAM 2 MG/ML 1 ML VIAL IVP ONE (03:30)
[2022-04-03 04:29] VITALS: BP 144/79
[2022-04-03 05:25] LABS: ALBUMIN 2.2 g/dL (3.5-5.0); BILIRUBIN,TOTAL 0.3 mg/dL (0.2-1.0); CREATININE 0.8 mg/dL (0.5-1.5); MAGNESIUM 1.6 mg/dL (1.80-2.40); POTASSIUM 3.8 mmol/L (3.5-5.1); TOTAL PROTEIN, SERUM 6.1 g/dL (6.0-8.3)
[2022-04-03] MEDS: INSULIN HUMULIN R 100 UNIT/ML 3ML SQ SCH ×3 (06:23→16:30)
[2022-04-03] MEDS: MAGNESIUM 2GM PREMIX 50ML 50 ML IV PRN (06:24)
[2022-04-03 08:00] VITALS: BP 172/80
[2022-04-03 08:33] LABS: BASOPHILS % (AUTO) 0.4 % (0.0-5.0); EOSINOPHILS % (AUTO) 5.8 % (0.0-8.0); HEMATOCRIT 27.9 % (36-48); LYMPHOCYTES % (AUTO) 15.9 % (21.0-51.0); MEAN CORPUSCULAR HEMOGLOBIN 26.5 pg (27.0-33.0); MEAN CORPUSCULAR HGB CONC 32.3 g/dL (32.0-36.0); MEAN CORPUSCULAR VOLUME 82.3 fL (79-99); MONOCYTES % (AUTO) 8.9 % (3.0-13.0); NEUTROPHILS % (AUTO) 66.4 % (40.0-77.0); PLATELET COUNT (AUTO) 268 K/uL (130-400); RED BLOOD CELL COUNT(AUTO) 3.39 MIL/uL (4.00-5.50); WHITE BLOOD COUNT (AUTO) 6.9 K/uL (4.8-10.8)
[2022-04-03] MEDS: ZINC SULFATE 220 CAPSULE PO SCH (08:35)
[2022-04-03] MEDS: ASCORBIC ACID 500 MG TAB PO SCH (08:36)
[2022-04-03] MEDS ORDERED: HYDROCHLOROTHIAZIDE 25 MG TABLET PO SCH (09:00)
[2022-04-03] MEDS: NIFEDIPINE 10 MG CAP PO SCH ×3 (09:10→16:32)
[2022-04-03] MEDS: FAMOTIDINE 20MG VIAL IV SCH (09:10)
[2022-04-03] MEDS: ENOXAPARIN SODIUM 40 MG/0.4 ML SYRINGE SQ SCH (09:12)
[2022-04-03] MEDS: NYSTATIN 15 GM POWDER TP SCH (09:26)
[2022-04-03] MEDS: LABETALOL 20MG VIAL IV SCH (12:00)
[2022-04-03] MEDS: HYDROCHLOROTHIAZIDE 25 MG TABLET PO SCH (12:00)
[2022-04-03 12:17] VITALS: BP 159/82
[2022-04-03] MEDS: IRON SUCROSE COMPLEX 300 MG in 0.9%NACL 50ML 50 ML IV SCH (13:31)
[2022-04-03 16:10] VITALS: BP 146/82
[2022-04-03] MEDS ORDERED: ZOLPIDEM TARTRATE 5 MG TAB PO SCH (21:00)
[2022-04-03] MEDS ORDERED: DOXYCYCLINE HYCLATE 100 MG TABLET PO SCH (21:00)
== END 2022-04-03 17:50 | DRG 871 ==
LOC: EDH 09:03 → EDHIP 14:25 → 2AH 22:30 → 3DH 04-02 13:24
PROVIDERS: ADMIT Internal Medicine; ATTEND Internal Medicine
DX: A41.50 Gram-negative sepsis, unspecified (principal); E43 Unspecified severe protein-calorie malnutrition; R53.2 Functional quadriplegia; G93.41 Metabolic encephalopathy; E87.1 Hypo-osmolality and hyponatremia; I50.32 Chronic diastolic (congestive) heart failure; I48.20 Chronic atrial fibrillation, unspecified; N39.0 Urinary tract infection, site not specified; Z16.24 Resistance to multiple antibiotics; D50.9 Iron deficiency anemia, unspecified; I11.0 Hypertensive heart disease with heart failure; I48.91 Unspecified atrial fibrillation; E11.9 Type 2 diabetes mellitus without complications; E78.5 Hyperlipidemia, unspecified; F03.90 Unspecified dementia, unspecified severity, without behavioral disturbance, psychotic disturbance, mood disturbance, and anxiety; F20.9 Schizophrenia, unspecified; F41.9 Anxiety disorder, unspecified; E03.9 Hypothyroidism, unspecified; I25.10 Atherosclerotic heart disease of native coronary artery without angina pectoris; M81.0 Age-related osteoporosis without current pathological fracture; E11.65 Type 2 diabetes mellitus with hyperglycemia; E66.01 Morbid (severe) obesity due to excess calories; E86.1 Hypovolemia; E87.8 Other disorders of electrolyte and fluid balance, not elsewhere classified; G47.00 Insomnia, unspecified; R65.20 Severe sepsis without septic shock; Z74.01 Bed confinement status; Z79.01 Long term (current) use of anticoagulants; Z80.1 Family history of malignant neoplasm of trachea, bronchus and lung; Z82.49 Family history of ischemic heart disease and other diseases of the circulatory system; Z81.8 Family history of other mental and behavioral disorders; Z82.0 Family history of epilepsy and other diseases of the nervous system; Z82.3 Family history of stroke; Z82.5 Family history of asthma and other chronic lower respiratory diseases; Z82.62 Family history of osteoporosis; Z83.3 Family history of diabetes mellitus; Z68.28 Body mass index [BMI] 28.0-28.9, adult; Z20.822 Contact with and (suspected) exposure to COVID-19
CPT/HCPCS: 36415; 71045; 73590; 76770; 80048; 80053; 80061; 80202; 81001; 82570; 82607; 82728; 82746; 82948; 83036; 83540; 83550; 83605; 83735; 83880; 83883; 83930; 83935; 84100; 84145; 84156; 84443; 84484; 85025; 85045; 85610; 85730; 86334; 87040; 87070; 87076; 87077; 87088; 87186; 87635; 87804; 92610; 93005; 93306; 93356; 99291; C1894; C9803; G0378; J0692; J0696; J1170; J1650; J1720; J1756; J1815; J2060; J2185; J3370; J3475; J3490; J7030; J7050; Q0167